=== PATIENT | male | born 1975 | race Caucasian/White ===

== ENCOUNTER 2019-08-11 15:33 | Outpatient (CLI) | payer BC, SELFPAY ==
--- NOTE | 2019-08-11 15:43 | XR_ITS ---
WS: [id number] PROCEDURE: XR chest 2V* [id number] CLINICAL INFORMATION: CHEST PAIN , FATIGUE COMPARISON: October 08, 2017 FINDINGS: Surgical clips left lung apex. Vascular stent over the mediastinum. Heart: Normal cardiac silhouette. Lungs: Lungs are clear. No consolidation or pleural fluid. Bones: Normal visualized bony structures. XR/XR chest 2V* [id number] IMPRESSION: No acute chest findings.
== END 2019-08-11 15:34 | disposition home or self-care (01) ==
LOC: RADWPI 15:40
PROVIDERS: Family Provider Nurse Practitioner Family; PCP Nurse Practitioner Family; Visit Provider Nurse Practitioner Family
DX: R07.9 Chest pain, unspecified (principal); R53.83 Other fatigue
CPT/HCPCS: 71046

== ENCOUNTER 2019-10-13 16:14 | Inpatient (IN) | payer BC, SELFPAY ==
[2019-10-13 16:19] VITALS: BP 152/87; PULSE 95; RESP 16; O2SAT 99; BMI 24.4
--- NOTE | 2019-10-13 16:19 | W.ED.PSYCH ---
Documented by User: MARCOS Guan 10/15/19 07:04 HPI - Psych General: Chief Complaint: Psychiatric Symptoms Stated Complaint: 96 HOUR HOLD Time Seen by Provider: 10/13/19 16:19 Source: patient Mode of arrival: other (POLICE) Limitations: no limitations History of Present Illness: HPI Narrative: Patient is a 44-year-old male who presents to ED today with police on a 96-hour hold. According to affidavits on patient's chart he has been very paranoid beginning last month. He thinks several people are stealing from his bank account and tracking his phone/texts/emails. He apparently has broken and disabled every phone and tablet in their home. He is constantly searching their house for other devices. He has made his girlfriend stripped naked so he could search her for hidden devices. He has not been eating or drinking because he thinks his girlfriend is poisoning him. He has bought cameras to place around his home to see if he can catch who is taking money and other belongings. He has made his girlfriend put her phone in the microwave so it cannot be traced. Patient denies etoh/drug use however family states they have seen meth on the counter . MD complaint: other (paranoia, delusions, psychosis) Onset (ago): week(s) Duration: intermittent History of same: No Relieving factors: none Exacerbating factors: none Associated symptoms: Deny auditory hallucinations, visual hallucinations, depression, homicidal ideation or suicidal ideation Review of Systems Const: Denies: fever(s) or chills Card: Denies: chest pain, palpitations, lightheadedness or syncope Resp: Denies: dyspnea GI: Denies: abdominal pain, nausea, vomiting or diarrhea Skin/Breast: Denies: rash Neuro: Denies: headache(s) Psych: Denies: anxiety, depression, visual hallucinations, auditory hallucinations, suicidal ideation or homicidal ideation [facility] ED PFSH: Social History Smoking and tobacco status: current every day smoker Physical Exam Const: COMMON NORMALS: no acute distress, patient oriented x3, alert and well nourished GENERAL APPEARANCE: cooperative and well kempt Resp: COMMON NORMALS: normal respiratory effort and clear to auscultation bilaterally AUSCULTATION: clear to auscultation bilaterally Cardio: COMMON NORMALS: regular rate and regular rhythm RATE: regular rate RHYTHM: regular rhythm Neuro: COMMON NORMALS: patient oriented x3 SENSORIUM/ORIENTATION: Yes alert Psych: COMMON NORMALS: mental status grossly normal, Normal thought process present, cooperative, normal affect, speech normal, activity/motor behavior normal, denies hallucinations, denies homicidal ideation and denies suicidal ideation APPEARANCE: Yes grossly normal and Yes well kempt ACTIVITY/MOTOR BEHAVIOR: Yes appropriate eye contact and No psychomotor agitation SPEECH: Yes normal speech MOOD & AFFECT: Yes euthymic mood THOUGHT PROCESS: Normal thought process present ATTENTION/CONCENTRATION: Yes attention grossly intact and Yes concentration grossly intact MEMORY/COGNITION: Yes memory grossly intact INSIGHT: Limited insight present (Psych) JUDGEMENT: Limited judgement present (Psych) OTHER: he does seem to think his girlfriend is poisoning him and stealing bank account information Skin: COMMON NORMALS: no rashes or lesions noted GENERAL SKIN EXAM: no rashes or lesions noted MDM - Psych Lab Data: Labs: Lab Results 10/13/19 10/13/19 Range/Units 16:25 16:25 WBC 8.0 (4.0-10.0) 10^3/ uL RBC 4.71 (4.1-5.3) 10^6/u L Hgb 15.3 (11.7-16.6) g/dL Hct 43.7 (42.0-52.0) % MCV 92.8 (80-94) fL MCH 32.5 (28.0-34.0) pg MCHC 35.0 (30.0-36.0) g/dL RDW 11.9 L (12.1-15.1) % Plt Count 267 (130-400) 10^3/c mm MPV 9.6 (7.4-10.4) fL Neut % (Auto) 53.1 % Lymph % (Auto) 37.4 % [place] % (Auto) 7.7 % Eos % (Auto) 1.1 % Baso % (Auto) 0.6 % Neut # (Auto) 4.3 (1.8-7.7) 10^3/u L Lymph # (Auto) 3.0 (0.8-4.8) 10^3/u L [place] # (Auto) 0.6 (0.2-0.9) 10^3/u L Eos # (Auto) 0.1 (0.0-0.8) 10^3/u L Baso # (Auto) 0.1 (0.0-0.1) 10^3/u L Nucleated RBC % (a uto) 0 % Nucleated RBCs # 0.0 /100WBC Sodium 139 (136-145) mmol/L Potassium 3.8 (3.5-5.1) mmol/L Chloride 99 (98-107) mmol/L Carbon Dioxide 27 (22-29) mmol/L Anion Gap 16.8 (5-19) BUN 8 (6-20) mg/dL Creatinine 0.9 (0.7-1.2) mg/dL GFR Calculation 91.7 (90-130) mL/min Glucose 105 (65-115) mg/dL Calculated Osmolal ity 284 L (285-295) mOsm/k g Calcium 9.2 (8.5-10.5) mg/dL Total Bilirubin 0.8 (0.15-1.2) mg/dL AST 30 (0-40) U/L ALT 68 H (0-41) U/L Alkaline Phosphata se 60 (40-130) IU/L Total Protein 7.5 (6.6-8.7) g/dL Albumin 4.8 (3.5-5.2) g/dL Globulin 2.7 (1.3-4.6) g/dL Salicylates < 0.3 L (3-10) mg/dL Acetaminophen < 5.0 L (10-30) ug/mL Ethyl Alcohol < 10 (0-10) mg/dL Discharge Plan Discharge Patient Disposition: Admitted As Inpatient Admit Provider: Jaciel Vail Clinical Impression: Acute psychosis Condition: Stable Referrals: Tayla Franklin FNP [Primary Care Provider] - Discharge Date/Time: 10/13/19 18:34 Sign Out Sign Out Data: Patient Sign Out occurred on 10/13/19 at 17:15. Patient's care was discussed, and care was transferred from to Pauline Rivas. Coding Level of Care Code ED Hydroelectric Plant Mechanical Engineer for g Fwd Exam Detailed Documented by User: Pauline Rivas 10/13/19 22:27 HPI - Psych General: Chief Complaint: Psychiatric Symptoms Stated Complaint: 96 HOUR HOLD Time Seen by Provider: 10/13/19 16:19 PFS ED PFSH: Social History Smoking and tobacco status: current every day smoker MDM - Psych Lab Data: Labs: Lab Results 10/13/19 10/13/19 Range/Units 16:25 16:25 WBC 8.0 (4.0-10.0) 10^3/ uL RBC 4.71 (4.1-5.3) 10^6/u L Hgb 15.3 (11.7-16.6) g/dL Hct 43.7 (42.0-52.0) % MCV 92.8 (80-94) fL MCH 32.5 (28.0-34.0) pg MCHC 35.0 (30.0-36.0) g/dL RDW 11.9 L (12.1-15.1) % Plt Count 267 (130-400) 10^3/c mm MPV 9.6 (7.4-10.4) fL Neut % (Auto) 53.1 % Lymph % (Auto) 37.4 % [place] % (Auto) 7.7 % Eos % (Auto) 1.1 % Baso % (Auto) 0.6 % Neut # (Auto) 4.3 (1.8-7.7) 10^3/u L Lymph # (Auto) 3.0 (0.8-4.8) 10^3/u L [place] # (Auto) 0.6 (0.2-0.9) 10^3/u L Eos # (Auto) 0.1 (0.0-0.8) 10^3/u L Baso # (Auto) 0.1 (0.0-0.1) 10^3/u L Nucleated RBC % (a uto) 0 % Nucleated RBCs # 0.0 /100WBC Sodium 139 (136-145) mmol/L Potassium 3.8 (3.5-5.1) mmol/L Chloride 99 (98-107) mmol/L Carbon Dioxide 27 (22-29) mmol/L Anion Gap 16.8 (5-19) BUN 8 (6-20) mg/dL Creatinine 0.9 (0.7-1.2) mg/dL GFR Calculation 91.7 (90-130) mL/min Glucose 105 (65-115) mg/dL Calculated Osmolal ity 284 L (285-295) mOsm/k g Calcium 9.2 (8.5-10.5) mg/dL Total Bilirubin 0.8 (0.15-1.2) mg/dL AST 30 (0-40) U/L ALT 68 H (0-41) U/L Alkaline Phosphata se 60 (40-130) IU/L Total Protein 7.5 (6.6-8.7) g/dL Albumin 4.8 (3.5-5.2) g/dL Globulin 2.7 (1.3-4.6) g/dL Salicylates < 0.3 L (3-10) mg/dL Acetaminophen < 5.0 L (10-30) ug/mL Ethyl Alcohol < 10 (0-10) mg/dL Discharge Plan Discharge Patient Disposition: Admitted As Inpatient Admit Provider: Jaciel Vail Clinical Impression: Acute psychosis Condition: Stable Referrals: Franklin,BRIGETTE Bourne [Primary Care Provider] - Discharge Date/Time: 10/13/19 18:34 Sign Out Sign Out Data: Patient Sign Out occurred on 10/13/19 at 17:15. Patient's care was discussed, and care was transferred from to [facility]. Coding Level of Care Code ED Hydroelectric Plant Mechanical Engineer for g Fwd Exam Detailed
[2019-10-13 16:48] LABS: Basophils # 0.1 10^3/uL (0.0-0.1); Basophils % 0.6 %; Eosinophils # 0.1 10^3/uL (0.0-0.8); Eosinophils % 1.1 %; Hematocrit 43.7 % (42.0-52.0); Hemoglobin 15.3 g/dL (11.7-16.6); Lymphocytes % 37.4 %; Mean Corpuscular Hemoglobin 32.5 pg (28.0-34.0); Mean Corpuscular Volume 92.8 fL (80-94); Mean Platelet Volume 9.6 fL (7.4-10.4); Monocytes # 0.6 10^3/uL (0.2-0.9); Monocytes % 7.7 %; Neutrophils # 4.3 10^3/uL (1.8-7.7); Neutrophils % 53.1 %; Nucleated Red Blood Cells % 0 %; Platelet Count 267 10^3/cmm (130-400); Red Blood Count 4.71 10^6/uL (4.1-5.3); Red Cell Distribution Width 11.9 % (12.1-15.1)
[2019-10-13 17:28] LABS: Alanine Aminotransferase 68 U/L (0-41); Albumin Level 4.8 g/dL (3.5-5.2); Alkaline Phosphatase 60 IU/L (40-130); Anion Gap 16.8 (5-19); Aspartate Amino Transferase 30 U/L (0-40); Blood Urea Nitrogen 8 mg/dL (6-20); Calcium 9.2 mg/dL (8.5-10.5); Carbon Dioxide 27 mmol/L (22-29); Chloride 99 mmol/L (98-107); Globulin 2.7 g/dL (1.3-4.6); Glomerular Filtration Rate 91.7 mL/min (90-130); Glucose 105 mg/dL (65-115); Osmolality Calculated 284 mOsm/kg (285-295); Potassium 3.8 mmol/L (3.5-5.1); Sodium 139 mmol/L (136-145); Total Bilirubin 0.8 mg/dL (0.15-1.2); Total Protein 7.5 g/dL (6.6-8.7)
[2019-10-13 17:36] LABS: Acetaminophen < 5.0 ug/mL (10-30); Alcohol Level < 10 mg/dL (0-10); Salicylate < 0.3 mg/dL (3-10)
[2019-10-13 18:33] VITALS: BP 138/74; PULSE 72; RESP 18; O2SAT 98
[2019-10-13 18:36] VITALS: BP 129/89; PULSE 83; RESP 20; TEMP 36.5; O2SAT 99
[2019-10-13] MEDS: trazodone 50 mg Tablet PO (20:27)
--- NOTE | 2019-10-13 20:53 | PC.NURSE ---
pt offered trazodone for sleep, pt accepted.
[2019-10-13 21:44] LABS: Amphetamines Screen Urine Positive (Negative); Barbiturates Screen Urine Negative (Negative); Benzodiazepines Screen Urine Negative (Negative); Cocaine Screen Urine Negative (Negative); Opiate Screen Urine Negative (Negative); PCP Screen Urine Negative (Negative); THC Screen Urine Negative (Negative)
[2019-10-13 21:58] VITALS: BP 106/73; PULSE 122; RESP 16; TEMP 36.5; O2SAT 99
[2019-10-14 06:00] VITALS: BP 108/71; PULSE 74; RESP 18; TEMP 36.9; O2SAT 99
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
[2019-10-14] MEDS: nicotine 21 mg Patch 1 PATCH TRANSDERMA (09:58)
[2019-10-14 14:00] VITALS: BP 93/61; PULSE 88; RESP 16; TEMP 36.5; O2SAT 98
[2019-10-14] MEDS: quetiapine 100 mg Tablet PO (20:56)
[2019-10-14] MEDS: atorvastatin 40 mg Tablet 20 MG PO (21:41)
[2019-10-14] MEDS: clopidogrel 75 mg Tablet PO (21:41)
[2019-10-14 21:49] VITALS: BP 111/79; PULSE 87; RESP 17; TEMP 36.4; O2SAT 100
[2019-10-15 05:53] VITALS: BP 110/73; PULSE 64; RESP 17; TEMP 36.9; O2SAT 97
[2019-10-15] MEDS: clopidogrel 75 mg Tablet PO (08:53)
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
[2019-10-15] MEDS: acetaminophen 325 mg Tablet 650 MG PO (13:42)
[2019-10-15 14:00] VITALS: BP 105/69; PULSE 94; RESP 20; TEMP 36.9; O2SAT 98
[2019-10-15] MEDS: atorvastatin 40 mg Tablet 20 MG PO (20:49)
[2019-10-15] MEDS: trazodone 50 mg Tablet PO (21:14)
[2019-10-15] MEDS: ibuprofen 600 mg Tablet PO (21:14)
[2019-10-15 22:00] VITALS: BP 98/64; PULSE 72; RESP 17; TEMP 36.6; O2SAT 98
--- NOTE | 2019-10-15 22:38 | PC.NURSE ---
TRAZODONE PT REQUESTING SLEEP AID. ADMINISTERED TRAZODONE 50 MG PO. WILL MONITOR FOR MEDICATION EFFECTIVENESS.
[2019-10-16 06:00] VITALS: BP 118/72; PULSE 66; RESP 18; TEMP 36.7; O2SAT 97
[2019-10-16] MEDS: clopidogrel 75 mg Tablet PO (07:52)
[2019-10-16 10:38] VITALS: BP 118/72; PULSE 66; RESP 18; TEMP 36.7; O2SAT 97
[2019-10-16 11:12] VITALS: BP 118/72; PULSE 66; RESP 18; TEMP 36.7; O2SAT 97
--- NOTE | 2019-10-16 11:48 | P.DS_ITS ---
Diagnoses at Discharge Discharge Diagnosis (1) Amphetamine-induced psychotic disorder: Status: Resolved Reason for Visit Reason for Visit: Reason For Visit: 96 HOUR HOLD Brief History: Chief complaint: I saw my again on my AOL account. I have not been able to get on that account since 2016. How do you think she got on that account? History of present illness: Fabian Gagnon is a 44-year-old man with no prior psychiatric history who presents with reports from [facility] and the ER physician at [facility] filed by his and her daughter. The affidavits detail some very bizarre and paranoid behavior. However it is noted that all of the information from the 2 reports below and the affidavits are verbal hearsay reports from the patient's and daughter. Laboratory Tests 10/13/19 10/13/19 16:25 19:02 Urine Opiates Screen Negative Ur Barbiturates Screen Negative Ur Phencyclidine Scrn Negative Ur Amphetamines Screen Positive H U Benzodiazepines Scrn Negative Urine Cocaine Screen Negative U Marijuana (THC) Screen Negative Ethyl Alcohol < 10 The patient states that his is trying to get rid of him and now that he is in the hospital, he is convinced that she is stealing all of his belongings from the home. He denies many of the allegations made in the affidavits. He does however report some bizarre events all surrounding his cell phone and computer accounts that he attributes to the manipulations of his . The information he provides is internally consistent but not verifiable. He states that he does not use methamphetamine and his urine drug screen was positive for meth. He says that he thinks somebody may have slipped him some methamphetamine without his knowing. He does detail some bizarre recent events where he was becoming confused. However he denies paranoia. He denies the presence of auditory or visual hallucinations. He denies the presence of suicidal or homicidal ideation. He has never been in counseling, seeing a psychiatrist, taking medications for mental health problem, or been admitted to a psychiatric hospital. 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 He is difficult to interview as he continues to perseverate on his fear that his and her daughter are stealing all of his belongings. He is fearful that his brother may also be involved as his used to be to his brother. Report from [facility]: Presenting Problem:: Fabian is described as acutely psychotic. He had a procedure on the [address] the 2 newest of 6 stints. Since then he has not been himself , he has reportedly started using methamphetamine, hasn't slept, eaten, or drank for several days. Additionally he is not taking the medications he is prescribed for his heart condition. He also have destroyed all computer devices and phone, has searched people for devices, and has spent large amounts of funds on surveillance and protective devices. His behavior is violent (thus far toward inanimate objects only), unpredictable, and increasingly bizarre. Police have been called twice due to his erratic behavior and the fear of being harmed his girlfriend and her daughter have felt. Of note is that Jessenia 17 month old daughter was at the home and when his behavior escalated they took her to her fathers family to remove her ring. Mental health history: Has never been treated for mental health problems. No history of counseling, medications for psychiatric diagnoses, psychiatric evaluation, or mental health hospitalization Hospital Course Discharge Summary From the time of admission, the patient is stated that that the allegations made against him by his girlfriend and her daughter and the affidavit were patently false. He claimed that the amphetamines that were in his drug screen were given to him by someone else. What was apparent was that there were contradicting st ories provided by the patient and his girlfriend in the affidavits. Over the course of a 2-day investigation, the weight of evidence pointed to the story provided by the patient as being more accurate. His hand cigar making supervisor at the [employer] at which she works reported that he had been performing his job without difficulty. There were no employment issues. There was no record of any prior mental health interventions that indicated a chronic mental health problem. Outside of the affidavit, no evidence could be found to support the allegations in the affidavit. Over the course of his hospitalization, he remained coherent logical and goal-directed without flight of ideas or loose associations. He did display a suspicious nature and continued to insist that his girlfriend had found a way to track his phone and get into an old AOL account. Given the nature of the technology, neither of those allegations are necessarily signs of irrational paranoia. At no time was there an indication of imminent risk to self or others. He stated that his plans on discharge were to go live with his aunt. He was angry at his girlfriend of forgetting a restraining order against him. However he specifically stated that he had no intention of retaliation. At no time was there an indication of first rank symptoms of psychosis during his hospitalization. There is no attention to internal stimuli. He was not seen to be responding to unseen voices or forces. There was a report that he did seem much more irritable after having the surgery for the stent 2 months ago. It was recommended that he have a CT scan of the brain to make sure that he perhaps may have had a CVA subsequent to the surgery. However he decided that it was more important for him to leave the hospital and he left AGAINST MEDICAL ADVICE. Involuntary Hold Information 96 Hour Hold: 96 Hour Involuntary Admission: Yes 96 Hour Hold Ending Date: 10/17/19 96 Hour Hold Ending Time: 18:36 Mental Status Exam MSE Comments: Discharge Mental Status Exam: Patient is alert interpersonally engaged male appearing approximately his stated age. Information provided is internally consistent and consistent with that in the chart other than the information provided in his affidavit. Appearance: hygiene is good; no gross neurological deficits., gait is unremarkable; AIMS=0 Speech: Speech is of normal rate and rhythm and easily understood. Thought processes: Thought processes are abstract though occasionally idiosyncratic. Judgment is adequate for safety. There is no indication of imminent danger to self or others. Psychotic processes: There is no indication of guarding or paranoia. There is no attention to the internal stimuli. Auditory and visual hallucinations are denied. Judgment: Insight is fair. Problem solving skills are good. Orientation: The patient is oriented to person, place time and situation. Memory: no deficits noted in immediate, intermediate, or remote spheres. Attention: The patient is alert and interpersonally engaged. Language: Verbalizations are coherent. Fund of knowledge: Fund of knowledge is adequate. Affect/Mood: Affect is irritable with a euthymic mood. denied suicidal ideation Affective range is appropriate. Psychosis: perception unimpaired except through cognitive distortion; reality testing intact. Discharge Data Data Completed and Pending: Pending at discharge Category Date Time Status CT head wo/w con [id number] Routine Cat Scan 10/16/19 09:59 Ordered Vitals: Last Vital Signs Temp 98.1 F 10/16/19 11:12 Pulse 66 10/16/19 11:12 Resp 18 10/16/19 11:12 BP 118/72 10/16/19 11:12 Pulse Ox 97 10/16/19 11:12 Discharge Plan Discharge Patient Disposition: Left Against Medical Advice Condition: Stable Prescriptions: Continued atorvastatin 20 mg tablet 20 mg PO QPM RF: 0 cetirizine 10 mg Tablet 10 mg PO DAILY PRN (Reason: Allergy Symptoms) RF: 0 clopidogrel 75 mg tablet 75 mg PO DAILY RF: 0 Chantix Starting Month Box 0.5 mg (11)- 1 mg (42) tablets,dose pack See Rx Instructions .ROUTE .COMPLEX RF: 0 atorvastatin 20 mg tablet RF: 0 Discharge Orders: Discharge Order (Routine); Ordered 10/16/19 Ordered By: Jaciel Vail Referrals: [facility] [Outside] - 4-7 days (walk-in hours: 7:30 a.m.-2:30 .m. 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
== END 2019-10-16 12:05 | disposition left against medical advice (07) | DRG 894 ==
LOC: ER 17:15 → NP 18:19
PROVIDERS: Physician Assistant; Admitting Provider Psychiatry & Neurology Psychiatry; PCP Nurse Practitioner Family; Visit Provider Psychiatry & Neurology Psychiatry
DX: F15.959 Other stimulant use, unspecified with stimulant-induced psychotic disorder, unspecified (principal); I25.10 Atherosclerotic heart disease of native coronary artery without angina pectoris; Z95.5 Presence of coronary angioplasty implant and graft; F15.90 Other stimulant use, unspecified, uncomplicated; Z91.128 Patient's intentional underdosing of medication regimen for other reason; F17.210 Nicotine dependence, cigarettes, uncomplicated; Z53.29 Procedure and treatment not carried out because of patient's decision for other reasons; Z79.02 Long term (current) use of antithrombotics/antiplatelets
CPT/HCPCS: 12345; 80053; 80306; 80307; 85025; 99284

== ENCOUNTER → 2020-01-16 11:37 | Outpatient (BNVA) | payer BC, SELFPAY | PROVIDERS: PCP Nurse Practitioner Family; Visit Provider Nurse Practitioner Family | DX: Z11.59 Encounter for screening for other viral diseases (principal) | CPT/HCPCS: 87635 ==

== ENCOUNTER 2020-01-26 14:46 | Emergency (ER) | payer BC, SELFPAY ==
[2020-01-26 14:51] VITALS: BP 114/90; PULSE 95; RESP 18; TEMP 37; O2SAT 95; BMI 26.3
--- NOTE | 2020-01-26 14:57 | XRR_ITS ---
PROCEDURE INFORMATION: Exam: XR Chest, 1 View Exam date and time: 01/26/2020 3:32 PM Age: 44 years old Clinical indication: Chest pain; Type not specified TECHNIQUE: Imaging protocol: XR of the chest Views: 1 view. COMPARISON: CR XR chest 2V* [id number] 08/11/2019 4:00 PM FINDINGS: Lungs: Unremarkable. No consolidation. Pleural space: Unremarkable. No pleural effusion. No pneumothorax. Heart/Mediastinum: Unremarkable. No cardiomegaly. Vasculature: Vascular stent in the medial right upper chest. Bones/joints: No acute findings. Other findings: Postoperative change in the left lower neck. XR/XR chest 1V portable [id number] IMPRESSION: No acute findings.
--- NOTE | 2020-01-26 14:57 | ECG_ITS ---
[facility] Test Date: 2020-01-26 Pat Name: Fabian Gagnon Department: Room: Gender: Male Service Unit Operator: : 1975 Requested By: Susan Prieto Order Number: [id number] Srinivasan MD: Leyda Lockwood M.D. Measurements Intervals [place] Rate: 98 P: 83 NM: 108 QRS: 84 QRSD: 86 T: 66 QT: 345 QTc: 442 Interpretive Statements SINUS RHYTHM WITH SHORT NM INTERVAL POSSIBLE LEFT ATRIAL ENLARGEMENT [-0.1mV P WAVE IN V1/V2] Compared to ECG 06/01/2017 15:18:32 Short NM interval now present Electronically Signed On 01-27-2020 17:20:57 CDT by Leyda Lockwood M.D. [email or web address] centerTianyuan Bio-Pharmaceuticalohiohealth [facility].Magnetic/store/NU/[id number] f
[2020-01-26 14:59] VITALS: BP 118/89; PULSE 95; RESP 20; O2SAT 97
--- NOTE | 2020-01-26 15:14 | W.ED.CHESTPA ---
HPI - Chest Pain General: Chief Complaint: Chest Pain Stated Complaint: cp Time Seen by Provider: 01/26/20 14:56 Source: patient Mode of arrival: ambulatory Limitations: no limitations History of Present Illness: HPI narrative: Patient is a 44-year-old male who presents to ED today with a complaint of left-sided chest pain. Patient does not seem to know if the pain started yesterday or the day before. He states pain seems to be episodic. He describes the sensation as a vibrating . He has not found any worsening or alleviating factors to his discomfort. He states pain seems to radiate into the right side of his chest. Patient apparently was seen at [place] ED yesterday and discharged home after his evaluation. Patient does admit to recently smoking methamphetamines. He denies any previous cardiac problems. He does have a history of what sounds to be subclavian steal syndrome and had surgery for this several years ago in [place]. He is complaining of shortness of breath. He has not been running fevers. MD complaint: chest pain Onset (ago): day(s) Timing of current episode: episodic Prior episodes: Yes Onset: during rest Pain location: left chest and right chest Relieving factors: nothing Exacerbating factors: nothing Associated symptoms: Reports dyspnea; Deny abdominal pain, fever(s), nausea, palpitations, syncope or vomiting Review of Systems Const: Denies: fever(s), chills, body aches, fatigue or malaise Eyes: Denies: change in vision, blurry vision, photophobia, floaters or seeing flashes Card: Reports: chest pain; Denies: palpitations, irregular heart rhythm, edema, swelling of feet/ankles, lightheadedness, syncope, pre-syncope, dyspnea on exertion, orthopnea, leg pain with exertion or acrocyanosis Resp: Reports: dyspnea; Denies: productive cough, non-productive cough, pain on inspiration, change in phlegm color, hemoptysis or chest congestion GI: Denies: abdominal pain, nausea, vomiting, heartburn or diarrhea : Denies: difficulty urinating or dysuria Musc: Denies: neck pain, back pain, extremity pain, extremity swelling, joint pain or joint swelling Skin/Breast: Denies: rash Neuro: Denies: headache(s), numbness in extremities, weakness in extremities or sensory changes PFSH ED PFSH: Social History Smoking and tobacco status: current every day smoker Physical Exam Const: COMMON NORMALS: average body habitus, patient oriented x3, alert and well nourished GENERAL APPEARANCE: cooperative and disheveled ORIENTATION/CONSCIOUSNESS: Yes awake, Yes oriented to person, Yes oriented to place and Yes oriented to time OTHER: appears under the influence of amphetamines HENMT: COMMON NORMALS: normocephalic and atraumatic HEAD & SCALP: normocephalic and atraumatic Eye: COMMON NORMALS: Equal, round and reactive pupils present, EOMs intact bilaterally, conjunctivae normal and no scleral icterus GENERAL EYE: appearance normal, both eyes and all related structures CONJUNCTIVA: Yes conjunctivae normal PUPIL: Yes Equal, round and reactive pupils present Neck/C-Spine: COMMON NORMALS: full ROM, no lymphadenopathy and no meningeal signs Chest: COMMONS NORMALS: normal inspection of the chest OTHER: TTP throughout anterior chest Resp: COMMON NORMALS: normal respiratory effort and clear to auscultation bilaterally AUSCULTATION: clear to auscultation bilaterally Cardio: COMMON NORMALS: regular rate and regular rhythm RATE: regular rate RHYTHM: regular rhythm GI: COMMON NORMALS: Normal to inspection, nondistended, normoactive bowel sounds present, Soft to palpation, non-tender, No hepatosplenomegaly present and no masses PALPATION: Yes Soft to palpation and Yes No hepatosplenomegaly present Back/Pelvis: COMMON NORMALS: thoracic and lumbar spine normal to inspection, no thoracic nor lumbar tenderness and thoraco-lumbar ROM normal Extremity: COMMON NORMALS: normal to inspection Neuro: KEYANNA COMA SCALE: document GCS findings [place] coma scale eye opening: Spontaneous [place] coma scale verbal response: Orientated Keyanna coma scale motor response: Obey commands [place] coma scale total score: 15 COMMON NORMALS: patient oriented x3 SENSORIUM/ORIENTATION: Yes alert, Yes oriented to person, Yes oriented to place and Yes oriented to time MENINGEAL SIGNS: Yes no meningeal signs Skin: COMMON NORMALS: no rashes or lesions noted GENERAL SKIN EXAM: no rashes or lesions noted Course Reevaluation(s): Reevaluation #1: patient looking slightly improved; urine sitting in room appears extremely dark; when questioned he tells me he has not drank anything in several days; will give patient another liter of fluids and order UA on his urine Reevaluation #2: patient telling me his chest pain has fully resolved Vital Signs: Vital signs: Vital Signs Temperature 98.6 F 01/26/20 14:51 Pulse Rate 92 01/26/20 17:19 Respiratory Rate 20 H 01/26/20 17:19 Blood Pressure 130/87 01/26/20 17:19 Pulse Oximetry 100 01/26/20 17:19 MDM - Chest Pain MDM Narrative: Medical decision making narrative: Patient stating his chest pain has fully alleviated at this time. Patient has a HEART score of 2. CXR normal. Initial troponin normal. EKG showing short CT but otherwise normal. There was no evidence for WPW or other accessory pathway. Symptoms could be related to him recently smoking methamphetamines. Recommend he follow up with his PCP this week for re-evaluation. Return to ED precautions given. Lab Data: Labs: Lab Results 01/26/20 01/26/20 01/26/20 Range/Units 15:18 15:18 15:18 WBC 8.6 (4.0-10.0) 10^3/ uL RBC 4.21 (4.1-5.3) 10^6/u L Hgb 13.8 (11.7-16.6) g/dL Hct 39.3 L (42.0-52.0) % MCV 93.3 (80-94) fL MCH 32.8 (28.0-34.0) pg MCHC 35.1 (30.0-36.0) g/dL RDW 12.3 (12.1-15.1) % Plt Count 240 (130-400) 10^3/c mm MPV 9.4 (7.4-10.4) fL Neut % (Auto) 52.8 % Lymph % (Auto) 40.0 % [place] % (Auto) 5.8 % Eos % (Auto) 0.7 % Baso % (Auto) 0.5 % Neut # (Auto) 4.55 (1.8-7.7) 10^3/u L Lymph # (Auto) 3.4 (0.8-4.8) 10^3/u L [place] # (Auto) 0.5 (0.2-0.9) 10^3/u L Eos # (Auto) 0.1 (0.0-0.8) 10^3/u L Baso # (Auto) 0.0 (0.0-0.1) 10^3/u L Nucleated RBC % (a uto) 0 % Nucleated RBCs # 0.0 /100WBC Sodium 141 (136-145) mmol/L Potassium 3.5 (3.5-5.1) mmol/L Chloride 107 (98-107) mmol/L Carbon Dioxide 23 (22-29) mmol/L Anion Gap 14.5 (5-19) BUN 11 (6-20) mg/dL Creatinine 0.9 (0.7-1.2) mg/dL GFR Calculation 91.7 (90-130) mL/min Glucose 94 (65-115) mg/dL Calculated Osmolal ity 288 (285-295) mOsm/k g Calcium 9.0 (8.5-10.5) mg/dL Total Bilirubin 1.8 H (0.15-1.2) mg/dL AST 14 (0-40) U/L ALT 11 (0-41) U/L Alkaline Phosphata se 51 (40-130) IU/L Creatine Kinase 115 (39-308) U/L Troponin T Baselin e 6 (0-15) ng/L Total Protein 6.8 (6.6-8.7) g/dL Albumin 4.4 (3.5-5.2) g/dL Globulin 2.4 (1.3-4.6) g/dL Urine Color (Yellow) Urine Appearance (CLEAR) Urine pH (5-7) Ur Specific Gravit y (1.005-1.030) Urine Protein (Negative) Urine Glucose (UA) (Normal) Urine Ketones (Negative) Urine Blood (Negative) Urine Nitrate (Negative) Urine Bilirubin (NEGATIVE) Urine Urobilinogen (Negative) mg/dL Ur Leukocyte Tara ase (Negative) Urine RBC (0-2) /hpf Urine WBC (0-5) /hpf Ur Squamous Epith Cells (0-5) Amorphous Sediment Urine Bacteria (NONE) Urine Mucus Urine Opiates Scre en (Negative) ng/mL Ur Barbiturates Sc reen (Negative) ng/mL Ur Phencyclidine S crn (Negative) ng/mL Ur Amphetamines Sc reen (Negative) ng/mL U Benzodiazepines Scrn (Negative) ng/mL Urine Cocaine Scre en (Negative) ng/mL U Marijuana (THC) Screen (Negative) ng/mL 08/24/20 08/24/20 Range/Units 15:32 15:32 WBC (4.0-10.0) 10^3/ uL RBC (4.1-5.3) 10^6/u L Hgb (11.7-16.6) g/dL Hct (42.0-52.0) % MCV (80-94) fL MCH (28.0-34.0) pg MCHC (30.0-36.0) g/dL RDW (12.1-15.1) % Plt Count (130-400) 10^3/c mm MPV (7.4-10.4) fL Neut % (Auto) % Lymph % (Auto) % [place] % (Auto) % Eos % (Auto) % Baso % (Auto) % Neut # (Auto) (1.8-7.7) 10^3/u L Lymph # (Auto) (0.8-4.8) 10^3/u L [place] # (Auto) (0.2-0.9) 10^3/u L Eos # (Auto) (0.0-0.8) 10^3/u L Baso # (Auto) (0.0-0.1) 10^3/u L Nucleated RBC % (a uto) % Nucleated RBCs # /100WBC Sodium (136-145) mmol/L Potassium (3.5-5.1) mmol/L Chloride (98-107) mmol/L Carbon Dioxide (22-29) mmol/L Anion Gap (5-19) BUN (6-20) mg/dL Creatinine (0.7-1.2) mg/dL GFR Calculation (90-130) mL/min Glucose (65-115) mg/dL Calculated Osmolal ity (285-295) mOsm/k g Calcium (8.5-10.5) mg/dL Total Bilirubin (0.15-1.2) mg/dL AST (0-40) U/L ALT (0-41) U/L Alkaline Phosphata se (40-130) IU/L Creatine Kinase (39-308) U/L Troponin T Baselin e (0-15) ng/L Total Protein (6.6-8.7) g/dL Albumin (3.5-5.2) g/dL Globulin (1.3-4.6) g/dL Urine Color Brown (Yellow) Urine Appearance Cloudy (CLEAR) Urine pH 5 (5-7) Ur Specific Gravit y 1.030 (1.005-1.030) Urine Protein Neg (Negative) Urine Glucose (UA) Norm (Normal) Urine Ketones 1+ H (Negative) Urine Blood 3+ H (Negative) Urine Nitrate Negative (Negative) Urine Bilirubin 1+ H (NEGATIVE) Urine Urobilinogen 4 H (Negative) mg/dL Ur Leukocyte Tara ase Negative (Negative) Urine RBC 10-15 H (0-2) /hpf Urine WBC None (0-5) /hpf Ur Squamous Epith Cells 0-4 H (0-5) Amorphous Sediment Not Reportable Urine Bacteria 1+ H (NONE) Urine Mucus 4+ Urine Opiates Scre en Negative (Negative) ng/mL Ur Barbiturates Sc reen Negative (Negative) ng/mL Ur Phencyclidine S crn Negative (Negative) ng/mL Ur Amphetamines Sc reen Positive H (Negative) ng/mL U Benzodiazepines Scrn Negative (Negative) ng/mL Urine Cocaine Scre en Negative (Negative) ng/mL U Marijuana (THC) Screen Negative (Negative) ng/mL Imaging Data^: CXR: Radiologist's impression: [place] [address] XRay Report Signed Patient: Fabian Gagnon Unit #: [id number] : 1975 Age/Sex: 44 / M ADM Date: 01/26/20 Loc: ER Room/Bed: Attending Dr: Ordering Provider/Ordering MD: Susan Prieto Date of Service: 01/26/20 Procedure(s): XR chest 1V portable [id number] Accession Number(s): [id number] Report Number: [id number] PROCEDURE INFORMATION: Exam: XR Chest, 1 View Exam date and time: 01/26/2020 3:32 PM Age: 44 years old Clinical indication: Chest pain; Type not specified TECHNIQUE: Imaging protocol: XR of the chest Views: 1 view. COMPARISON: CR XR chest 2V* [id number] 08/11/2019 4:00 PM FINDINGS: Lungs: Unremarkable. No consolidation. Pleural space: Unremarkable. No pleural effusion. No pneumothorax. Heart/Mediastinum: Unremarkable. No cardiomegaly. Vasculature: Vascular stent in the medial right upper chest. Bones/joints: No acute findings. Other findings: Postoperative change in the left lower neck. XR/XR chest 1V portable [id number] IMPRESSION: No acute findings. Dictated By: Escobar Lara MD Signed By: Escobar Lara MD Signed Date/Time: 01/26/20 1548 DD/ EKG Data^: EKG 1: EKG interpretation date: 01/26/20 EKG interpretation time: 14:52 Interpretation: Sinus rhythm with short CT interval Rate [address] elevation or depression changes noted There is no widening of QRS complex and no delta waves present Also reviewed by Dr. Gomez EKG 2: EKG interpretation date: 01/26/20 EKG interpretation time: 16:44 Interpretation: Sinus rhythm with short CT interval Rate [address] elevation or depression changes noted No acute changes noted from EKG performed earlier on same visit Discharge Plan Discharge Patient Disposition: Home Clinical Impression: Methamphetamine abuse Chest pain Qualifiers: Chest pain type: unspecified Qualified Code(s): R07.9 - Chest pain, unspecified Hematuria Qualifiers: Hematuria type: unspecified type Qualified Code(s): R31.9 - Hematuria, unspecified Condition: Stable Prescriptions: No Action clopidogrel 75 mg tablet 75 mg PO DAILY RF: 0 Aspir-81 81 mg Tablet,Delayed Release (Dr/Ec) 81 mg PO DAILY RF: 0 Discharge Orders: Discharge Order (Routine); Ordered 01/26/20 Ordered By: Susan Prieto Referrals: Tayla Franklin FNP [Primary Care Provider] - Patient Instructions: Methamphetamine Abuse, Chest Pain (ED), Methamphetamine Abuse (ED) Activity Restrictions/Additional Instructions: As discussed please follow-up with your primary care provider this week for reevaluation. You may return to the emergency department for any worsening chest pain, shortness of breath, difficulty breathing, passing out episodes, fevers greater than 100.4, or any other concerns you may have. Stop doing methamphetamine. Discharge Date/Time: 01/26/20 17:19 Coding Level of Care Code ED Cheese Specialist for Chg Fwd Exam Comprehensive
[2020-01-26 15:25] LABS: Basophils % 0.5 %; Eosinophils # 0.1 10^3/uL (0.0-0.8); Eosinophils % 0.7 %; Hematocrit 39.3 % (42.0-52.0); Hemoglobin 13.8 g/dL (11.7-16.6); Lymphocytes # 3.4 10^3/uL (0.8-4.8); Mean Corpuscular HGB Conc 35.1 g/dL (30.0-36.0); Mean Corpuscular Hemoglobin 32.8 pg (28.0-34.0); Mean Corpuscular Volume 93.3 fL (80-94); Mean Platelet Volume 9.4 fL (7.4-10.4); Monocytes # 0.5 10^3/uL (0.2-0.9); Monocytes % 5.8 %; Neutrophils # 4.55 10^3/uL (1.8-7.7); Neutrophils % 52.8 %; Nucleated Red Blood Cells % 0 %; Platelet Count 240 10^3/cmm (130-400); Red Blood Count 4.21 10^6/uL (4.1-5.3); Red Cell Distribution Width 12.3 % (12.1-15.1); White Blood Count 8.6 10^3/uL (4.0-10.0)
[2020-01-26 15:44] VITALS: O2SAT 95
[2020-01-26] MEDS: sodium chloride 0.9% 1,000 ML 999 ML IV ×2 (15:48→16:39)
[2020-01-26 15:50] LABS: Alanine Aminotransferase 11 U/L (0-41); Albumin Level 4.4 g/dL (3.5-5.2); Alkaline Phosphatase 51 IU/L (40-130); Anion Gap 14.5 (5-19); Aspartate Amino Transferase 14 U/L (0-40); Blood Urea Nitrogen 11 mg/dL (6-20); Carbon Dioxide 23 mmol/L (22-29); Chloride 107 mmol/L (98-107); Creatine Phosphokinase 115 U/L (39-308); Globulin 2.4 g/dL (1.3-4.6); Glomerular Filtration Rate 91.7 mL/min (90-130); Glucose 94 mg/dL (65-115); Osmolality Calculated 288 mOsm/kg (285-295); Potassium 3.5 mmol/L (3.5-5.1); Sodium 141 mmol/L (136-145); Total Bilirubin 1.8 mg/dL (0.15-1.2); Total Protein 6.8 g/dL (6.6-8.7)
[2020-01-26 15:51] LABS: Troponin(5th) Baseline 6 ng/L (0-15)
[2020-01-26 15:56] LABS: Amphetamines Screen Urine Positive (Negative); Barbiturates Screen Urine Negative (Negative); Benzodiazepines Screen Urine Negative (Negative); Cocaine Screen Urine Negative (Negative); Opiate Screen Urine Negative (Negative); PCP Screen Urine Negative (Negative); THC Screen Urine Negative (Negative)
[2020-01-26] MEDS: LORazepam 2 mg/mL INJ 1 mL 1 MG IVP (16:18)
--- NOTE | 2020-01-26 16:57 | ECG_ITS ---
[facility] Test Date: 2020-01-26 Pat Name: Fabian Gagnon Department: Room: Gender: Male Editing Internship: : 1975 Requested By: Susan Prieto Order Number: [id number] Srinivasan MD: Leyda Lockwood M.D. Measurements Intervals [place] Rate: 90 P: 83 RI: 119 QRS: 79 QRSD: 84 T: 62 QT: 381 QTc: 467 Interpretive Statements SINUS RHYTHM WITH SHORT RI INTERVAL Compared to ECG 01/26/2020 14:52:14 No significant changes Electronically Signed On 01-27-2020 17:29:02 CDT by Leyda Lockwood M.D. [email or web address] smith countyHelpingDocgeorgetown behavioral [email or web address] PCR Diagnostics/store/OM/[id number]
[2020-01-26 17:06] LABS: Add Urine Microscopic? YES; Bilirubin Urine 1+ (NEGATIVE); Blood Urine 3+ (Negative); Glucose Urine UA Norm (Normal); Ketones Urine 1+ (Negative); Leukocyte Esterase Urine Negative (Negative); Nitrate Urine Negative (Negative); Protein Urine Neg (Negative); Urine Appearance Cloudy (CLEAR); Urine Color Brown (Yellow); Urobilinogen Urine 4 mg/dL (Negative); pH Urine 5 (5-7)
[2020-01-26 17:16] LABS: Squamous Epithelial Cell Urine 0-4 (0-5)
[2020-01-26 17:17] LABS: Add Urine Culture? Yes; Bacteria Urine 1+; Mucus Urine 4+
[2020-01-26 17:19] VITALS: BP 130/87; PULSE 92; RESP 20; O2SAT 100
== END 2020-01-26 17:19 | disposition home or self-care (01) ==
PROVIDERS: Emergency Provider Physician Assistant; PCP Nurse Practitioner Family
DX: R07.9 Chest pain, unspecified (principal); R31.9 Hematuria, unspecified; F15.10 Other stimulant abuse, uncomplicated; Z79.02 Long term (current) use of antithrombotics/antiplatelets; Z79.82 Long term (current) use of aspirin; F17.210 Nicotine dependence, cigarettes, uncomplicated
CPT/HCPCS: 12345; 36415; 71045; 80053; 80306; 81001; 82550; 84484; 85025; 87086; 93005; 96361; 96374; 96375; 99283; 99284; J2060; J7030

== ENCOUNTER 2021-07-11 08:00 | Emergency (ER) | payer BC, MEDICAID, SELFPAY ==
[2021-07-11 08:07] VITALS: BP 101/73; PULSE 98; RESP 16; TEMP 36.8; O2SAT 97; BMI 25.1
--- NOTE | 2021-07-11 08:21 | W.ED.DENTAL ---
HPI - Dental/Oral General: Chief complaint: Dental/Oral Stated complaint: Dental pain Time Seen by Provider: 07/11/21 08:04 History of Present Illness: Patient is a 46-year-old male who comes to the ED with dental pain. Pain started a couple days ago. He has some swelling and tenderness to the right lower mandible. Dental pain is located at tooth #31. Pain is mild and he takes aspirin at home for pain. Denies any fever, chills, throat or tongue swelling, nausea/vomiting. Associated symptoms: Denies fever(s), odynophagia or tongue swelling Review of Systems Const: Denies: fever(s), chills or fatigue Eyes: Denies: change in vision or eye discomfort ENMT: Reports: dental pain; Denies: throat pain, odynophagia, nasal discharge or nasal congestion Card: Denies: chest pain, palpitations, edema, swelling of feet/ankles, dyspnea on exertion or orthopnea Resp: Denies: dyspnea, productive cough or non-productive cough GI: Denies: abdominal pain, nausea, vomiting, diarrhea, constipation or hematochezia : Denies: flank pain, difficulty urinating, dysuria or hematuria Musc: Denies: neck pain, back pain or extremity swelling Skin/Breast: Denies: rash or new lesions Neuro: Denies: headache(s) All/Imm: Denies: throat swelling or tongue swelling PFSH ED PFSH: Medical History No pertinent family history Surgical History No pertinent past surgical history Social History Smoking and tobacco status: current every day smoker Physical Exam Const: COMMON NORMALS: no acute distress, patient oriented x3, healthy appearing and alert GENERAL APPEARANCE: cooperative and comfortable HENMT: COMMON NORMALS: normocephalic HEAD & SCALP: normocephalic FACE & SINUS: Facial tenderness on exam of face and sinuses on the right mandible (Mild) MOUTH: Normal oral and palatal mucosa present TEETH & GINGIVA: Yes abnormal tooth and associated gingiva lower right third molar tender and with associated gingival edema and Yes caries (bottom right molars) THROAT: posterior oropharynx normal and uvula midline Neck/C-Spine: COMMON NORMALS: supple GENERAL: Yes normal visual inspection Resp: COMMON NORMALS: normal respiratory effort, No retractions, No use of accessory muscles and clear to auscultation bilaterally AUSCULTATION: clear to auscultation bilaterally Cardio: COMMON NORMALS: regular rate, regular rhythm, S1 normal heart sound present, S2 normal heart sound present, No gallops present (Cardio), No clicks present (Cardio), No murmurs present (Cardio) and Peripheral pulses 2+ throughout RATE: regular rate RHYTHM: regular rhythm HEART SOUNDS: S1 normal heart sound present and S2 normal heart sound present PERIPHERAL PULSES: Peripheral pulses 2+ throughout GI: COMMON NORMALS: Normal to inspection, nondistended, normoactive bowel sounds present, Soft to palpation, non-tender and no masses PALPATION: Yes Soft to palpation : COMMON NORMALS: Yes no CVA tenderness BLADDER/KIDNEY EXAM: Yes no CVA tenderness Back/Pelvis: COMMON NORMALS: no CVA tenderness Extremity: COMMON NORMALS: normal to inspection Neuro: COMMON NORMALS: patient oriented x3 and moves all extremities SENSORIUM/ORIENTATION: Yes alert Skin: GENERAL SKIN EXAM: dry skin Course Vital Signs: Vital signs: Vital Signs Temperature 98.3 F 07/11/21 08:07 Pulse Rate 98 07/11/21 08:07 Respiratory Rate 16 07/11/21 08:07 Blood Pressure 101/73 07/11/21 08:07 Pulse Oximetry 97 07/11/21 08:07 [facility] - Dental/Oral Medical Decision Making Patient is a 46-year-old male comes to the ED with dental pain. Vitals are stable. Patient appears in no acute distress or pain. He has some right lower mandible tenderness to palpation along with some right lower molar tenderness and surrounding gingival edema. Patient diagnosed with pain due to dental caries and discharged home with a prescription for clindamycin. Patient was told to contact his dentist for further evaluation and management of dental pain. Return to ED precautions given. Patient understood and agree with plan. Discharge Plan Discharge Patient Disposition: Home Clinical Impression: Pain due to dental caries Condition: Stable Prescriptions: New clindamycin HCl 150 mg capsule 300 mg PO QID 7 Days Qty: 56 0RF No Action clopidogrel 75 mg tablet 75 mg PO DAILY 0RF Rx Instructions: external med history has rx last filled on 09/04/2019 30d/s-pt states he only takes when he thinks he needs Aspir-81 81 mg Tablet,Delayed Release (Dr/Ec) 81 mg PO DAILY 0RF Rx Instructions: pt states he takes this everyday Discharge Orders: Discharge ED (Routine); Ordered 07/11/21 Ordered By: Jori Sanchez Referrals: Tayla Franklin FNP [Primary Care Provider] - Discharge Diet: Regular Discharge Activity: Increase activity as tolerated Patient Instructions: Dental Caries (Cavities), Dental Abscess (ED) Activity Restrictions/Additional Instructions: Contact your dentist and set up an appointment with them as soon as possible for further evaluation of dental pain. Take medications as prescribed. Return to the ER or your medical provider if condition worsens. Please read and understand discharge instructions. Thank you for choosing [facility] for your healthcare needs today. Please realize this is an emergency room and that we are providing you with a medical screening exam and this may not be complete and all inclusive of all the testing and or work up that you may need to determine your ailment or severity of your illness. It is very important that you follow up as instructed or that you return to the Emergency Department should you have concerns or if your condition changes or worsens in any way. 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
== END 2021-07-11 08:39 | disposition home or self-care (01) ==
PROVIDERS: Emergency Provider Physician Assistant; PCP Nurse Practitioner Family
DX: K02.9 Dental caries, unspecified (principal); Z79.02 Long term (current) use of antithrombotics/antiplatelets; Z79.82 Long term (current) use of aspirin; F17.210 Nicotine dependence, cigarettes, uncomplicated
CPT/HCPCS: 99282

== ENCOUNTER 2021-10-21 18:09 | Emergency (ER) | payer OTHER, SELFPAY ==
--- NOTE | 2021-10-21 18:18 | XRR_ITS ---
PROCEDURE INFORMATION: Exam: XR Left Hand Exam date and time: 10/21/2021 6:29 PM Age: 46 years old Clinical indication: Pain; Hand; Left; Additional info: Injury TECHNIQUE: Imaging protocol: XR Left hand. Views: 3 or more views. COMPARISON: No relevant prior studies available. FINDINGS: Bones/joints: A nondisplaced fracture at the lateral/distal corner of the left scaphoid. Normal bone mineralization. No joint effusion. Joint spaces are maintained. Soft tissues: Mild soft tissue swelling over the scaphoid. No radiopaque foreign body. XR/XR hand LT min 3V* [id number] IMPRESSION: 1. A nondisplaced fracture at the lateral/distal corner of the left scaphoid. 2. Mild soft tissue swelling over the left scaphoid.
--- NOTE | 2021-10-21 18:18 | XRR_ITS ---
PROCEDURE INFORMATION: Exam: XR Right Hand Exam date and time: 10/21/2021 6:29 PM Age: 46 years old Clinical indication: Pain; Hand; Right; Additional info: Injury TECHNIQUE: Imaging protocol: XR Right hand. Views: 3 or more views. COMPARISON: No relevant prior studies available. FINDINGS: Bones/joints: Minimally displaced avulsion fracture at the lateral/distal aspect of the scaphoid. No dislocation. Normal bone mineralization. No joint effusion. Joint spaces are maintained. Soft tissues: Mild soft tissue swelling over the scaphoid. No radiopaque foreign body. XR/XR hand RT min 3V* [id number] IMPRESSION: 1. Minimally displaced avulsion fracture at the lateral/distal aspect of the scaphoid. 2. Mild soft tissue swelling over the scaphoid.
[2021-10-21 19:12] VITALS: BP 125/78; PULSE 79; RESP 16; TEMP 37.7; O2SAT 98
--- NOTE | 2021-10-21 19:43 | XRR_ITS ---
PROCEDURE INFORMATION: Exam: XR Right Knee Exam date and time: 10/21/2021 8:12 PM Age: 46 years old Clinical indication: Pain; Knee; Right; Additional info: Right knee pain after fall TECHNIQUE: Imaging protocol: XR Right knee. Views: 3 views. COMPARISON: No relevant prior studies available. FINDINGS: Bones/joints: No acute fracture. No dislocation. Normal bone mineralization. No joint effusion. Joint spaces are maintained. There is a fabella in the soft tissues posterior to the knee. Soft tissues: No soft tissue swelling. No radiopaque foreign body. XR/XR knee RT 3V* [id number] IMPRESSION: No acute fracture of the right knee. Followup imaging recommended in 7-14 days if clinical concern for fracture persists.
--- NOTE | 2021-10-21 19:44 | ED_ITS ---
HPI - Fall General: Chief Complaint: Fall Stated Complaint: FALL/both hand injury Time Seen by Provider: 10/21/21 18:27 History of Present Illness: Patient is a 46-year-old male comes to the ED with a fall injury. Patient was at work and tripped over a forklift causing him to fall and landed on his hands with his right left arm extended. The forklift he tripped over hit his right knee and he has some pain in his right knee. Most of his pain is in both his right and left hands and says his left hand is bothering him more. He rates his pain a 10 out of 10. Denies any head trauma or loss of consciousness. This is a worker's comp case and paperwork needed to be filled out. Associated symptoms-after fall: Denies abdominal pain, chest pain, headache(s), hematuria or neck pain Review of Systems Const: Denies: fever(s), chills or fatigue Eyes: Denies: change in vision or eye discomfort ENMT: Denies: throat pain, odynophagia, nasal discharge or nasal congestion Card: Denies: chest pain, palpitations, edema, swelling of feet/ankles, dyspnea on exertion or orthopnea Resp: Denies: dyspnea, productive cough or non-productive cough GI: Denies: abdominal pain, nausea, vomiting, diarrhea, constipation or hematochezia : Denies: flank pain, difficulty urinating, dysuria or hematuria Musc: Reports: extremity pain (left and right hand pain); Denies: neck pain, back pain or extremity swelling Skin/Breast: Denies: rash or new lesions Neuro: Denies: headache(s), numbness in extremities or weakness in extremities PFS ED PFSH: Medical History No pertinent family history Surgical History No pertinent past surgical history Social History Smoking and tobacco status: current every day smoker Physical Exam Const: COMMON NORMALS: patient oriented x3 and alert GENERAL APPEARANCE: cooperative HENMT: COMMON NORMALS: normocephalic HEAD & SCALP: normocephalic MOUTH: Normal oral and palatal mucosa present THROAT: posterior oropharynx normal and uvula midline Neck/C-Spine: COMMON NORMALS: supple GENERAL: Yes normal visual inspection Resp: COMMON NORMALS: normal respiratory effort, No retractions, No use of accessory muscles and clear to auscultation bilaterally AUSCULTATION: clear to auscultation bilaterally Cardio: COMMON NORMALS: regular rate, regular rhythm, S1 normal heart sound present, S2 normal heart sound present, No gallops present (Cardio), No clicks present (Cardio), No murmurs present (Cardio) and Peripheral pulses 2+ throughout RATE: regular rate RHYTHM: regular rhythm HEART SOUNDS: S1 normal heart sound present and S2 normal heart sound present PERIPHERAL PULSES: Peripheral pulses 2+ throughout GI: COMMON NORMALS: Normal to inspection, nondistended, normoactive bowel sounds present, Soft to palpation, non-tender and no masses PALPATION: Yes Soft to palpation : COMMON NORMALS: Yes no CVA tenderness BLADDER/KIDNEY EXAM: Yes no CVA tenderness Back/Pelvis: COMMON NORMALS: no CVA tenderness Extremity: NARRATIVE EXTREMITY EXAM: Right and left hands?no visible deformity or swelling noted. Tover palm region of hands. Limited range of motion of wrists and flexion of fingers due to pain. Neurovascular tact. Neuro: COMMON NORMALS: patient oriented x3 and moves all extremities SENSORIUM/ORIENTATION: Yes alert Skin: GENERAL SKIN EXAM: dry skin Course Vital Signs: Vital signs: Vital Signs Temperature 99.9 F H 10/21/21 19:12 Pulse Rate 79 10/21/21 19:12 Respiratory Rate 16 10/21/21 20:26 Blood Pressure 125/78 10/21/21 19:12 Pulse Oximetry 98 10/21/21 19:12 MDM - Fall Medical Decision Making Patient is a 46-year-old male who comes to the ED with bilateral hand pain after fall injury at work. X-rays of right left hand showed bilateral scaphoid fractures. Right and left hands were placed in a thumb spica splint and I placed an order with case management for patient to be referred to Ortho for follow-up. UA drug screen was done and it was clean. Worker's Comp. paperwork was filled out and signed. He was stable for discharge home and sent with a prescription of [place] for pain. Return to ED precautions given. Lab Data Radiology Impressions Hand X-Ray 10/21/21 18:18 IMPRESSION: 1. A nondisplaced fracture at the lateral/distal corner of the left scaphoid. 2. Mild soft tissue swelling over the left scaphoid. Knee X-Ray 10/21/21 19:43 IMPRESSION: No acute fracture of the right knee. Followup imaging recommended in 7-14 days if clinical concern for fracture persists. Laboratory Results Urine Opiates Screen Negative ng/mL (Negative) 10/21/21 19:47 Ur Barbiturates Screen Negative ng/mL (Negative) 10/21/21 19:47 Ur Phencyclidine Scrn Negative ng/mL (Negative) 10/21/21 19:47 Ur Amphetamines Screen Negative ng/mL (Negative) 10/21/21 19:47 U Benzodiazepines Scrn Negative ng/mL (Negative) 10/21/21 19:47 Urine Cocaine Screen Negative ng/mL (Negative) 10/21/21 19:47 U Marijuana (THC) Screen Negative ng/mL (Negative) 10/21/21 19:47 Discharge Plan Discharge Patient Disposition: Home Clinical Impression: Closed fracture of scaphoid of both wrists Qualifiers: Encounter type: initial encounter Qualified Code(s): S62.001A - Unspecified fracture of navicular [scaphoid] bone of right wrist, initial encounter for closed fracture Condition: Stable Prescriptions: No Action clopidogrel 75 mg tablet 75 mg PO DAILY 0RF Rx Instructions: external med history has rx last filled on 09/04/2019 30d/s-pt states he only takes when he thinks he needs Aspir-81 81 mg Tablet,Delayed Release (Dr/Ec) 81 mg PO DAILY 0RF Rx Instructions: pt states he takes this everyday Discharge Orders: Discharge ED (Routine); Ordered 10/21/21 Ordered By: Jori Sanchez Referrals: Tayla Franklin FNP [Primary Care Provider] - Discharge Diet: Regular Discharge Activity: Limit activity as instructed Patient Instructions: Scaphoid Fracture (ED), Opioid Safety Activity Restrictions/Additional Instructions: Follow-up with medical provider as directed. Case management should be contacting you in the next several days to set up an appoint with Ortho for follow-up and further management of fractures. Keep splint on and dry and limit activity with right and left hands to allow for healing. take medications as prescribed. Return to the ER or your medical provider if condition worsens. Please read and understand discharge instructions. Thank you for choosing [facility] for your healthcare needs today. Please realize this is an emergency room and that we are providing you with a medical screening exam and this may not be complete and all inclusive of all the testing and or work up that you may need to determine your ailment or severity of your illness. It is very important that you follow up as instructed or that you return to the Emergency Department should you have concerns or if your condition changes or worsens in any way. 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
[2021-10-21 20:06] LABS: Amphetamines Screen Urine Negative (Negative); Barbiturates Screen Urine Negative (Negative); Benzodiazepines Screen Urine Negative (Negative); Cocaine Screen Urine Negative (Negative); Opiate Screen Urine Negative (Negative); PCP Screen Urine Negative (Negative); THC Screen Urine Negative (Negative)
[2021-10-21 20:26] VITALS: RESP 16
[2021-10-21] MEDS: morphine 4 mg/mL SDV 1 mL IM (20:26)
[2021-10-21] MEDS: HYDROcodone-acetaminophen 7.5-325 mg Tablet 2 TAB PO (20:40)
--- NOTE | 2021-10-24 10:39 | DCPLANNER ---
Addendum entered by Queta Cervantes 10/28/21 11:23: Patient had a follow up appointment scheduled for 10.25.[address] Salguero at ortho - patient did attend appointment. Original Note: customer account manager had message to schedule a follow up appointment for patient with ortho. customer account manager sent patients information to the front office staff at ortho. Patients information will be printed and reviewed. Clinic will call patient with appointment information.
== END 2021-10-21 21:08 | disposition home or self-care (01) ==
PROVIDERS: Emergency Provider Physician Assistant; PCP Nurse Practitioner Family
DX: S62.001A Unspecified fracture of navicular [scaphoid] bone of right wrist, initial encounter for closed fracture (principal); S62.002A Unspecified fracture of navicular [scaphoid] bone of left wrist, initial encounter for closed fracture; W01.0XXA Fall on same level from slipping, tripping and stumbling without subsequent striking against object, initial encounter; M25.561 Pain in right knee
CPT/HCPCS: 73130; 73562; 80306; 96372; 99283; J2270

== ENCOUNTER → 2021-10-25 08:34 | Outpatient (BNVA) | payer OTHER, SELFPAY | PROVIDERS: PCP Nurse Practitioner Family; Referring Provider Physician Assistant; Visit Provider Orthopaedic Surgery | DX: S62.001A Unspecified fracture of navicular [scaphoid] bone of right wrist, initial encounter for closed fracture (principal); S62.002A Unspecified fracture of navicular [scaphoid] bone of left wrist, initial encounter for closed fracture; X58.XXXA Exposure to other specified factors, initial encounter | CPT/HCPCS: 73110 ==

== ENCOUNTER 2021-10-25 10:32 | Outpatient (CLI) | payer OTHER, SELFPAY | END 2021-10-25 10:33 | disposition home or self-care (01) | PROVIDERS: PCP Nurse Practitioner Family; Visit Provider Orthopaedic Surgery | DX: Z46.89 Encounter for fitting and adjustment of other specified devices (principal); S62.014D Nondisplaced fracture of distal pole of navicular [scaphoid] bone of right wrist, subsequent encounter for fracture with routine healing; X58.XXXD Exposure to other specified factors, subsequent encounter | CPT/HCPCS: 97760; L3809 ==

== ENCOUNTER → 2021-11-08 13:50 | Outpatient (BNVA) | payer OTHER, SELFPAY | PROVIDERS: PCP Nurse Practitioner Family; Visit Provider Orthopaedic Surgery | DX: S62.001A Unspecified fracture of navicular [scaphoid] bone of right wrist, initial encounter for closed fracture (principal); X58.XXXA Exposure to other specified factors, initial encounter | CPT/HCPCS: 73110 ==

== ENCOUNTER → 2021-12-06 13:41 | Outpatient (BNVA) | payer OTHER, SELFPAY | PROVIDERS: PCP Nurse Practitioner Family; Visit Provider Orthopaedic Surgery | DX: S62.009D Unspecified fracture of navicular [scaphoid] bone of unspecified wrist, subsequent encounter for fracture with routine healing (principal); W19.XXXD Unspecified fall, subsequent encounter | CPT/HCPCS: 73110 ==

== ENCOUNTER → 2022-01-12 13:20 | Outpatient (BNVA) | payer OTHER, SELFPAY | PROVIDERS: PCP Nurse Practitioner Family; Visit Provider Orthopaedic Surgery | DX: S62.009D Unspecified fracture of navicular [scaphoid] bone of unspecified wrist, subsequent encounter for fracture with routine healing (principal); X58.XXXD Exposure to other specified factors, subsequent encounter | CPT/HCPCS: 73110 ==

== ENCOUNTER 2022-02-07 17:05 | Emergency (ER) | payer OTHER, SELFPAY ==
[2022-02-07 17:43] VITALS: BP 107/78; PULSE 78; RESP 13; TEMP 36.8; O2SAT 98
--- NOTE | 2022-02-07 20:01 | ED_ITS ---
HPI - Extremity Problem General: Chief complaint: Extremity Injury, Upper Stated complaint: wants med refill Time Seen by Provider: 02/07/22 18:00 Source: patient Mode of arrival: ambulatory Limitations: no limitations History of Present Illness: 46-year-old male that has had bilateral scaphoid fractures back in October. He states he is following with Dr. Abraham scheduled have MRI states he is ran out of his hydrocodone's been having increasing pain. He states he had tramadol feels like its not helping his pain pain is currently a 6 out of 10. Denies any new injuries. Associated symptoms: Deny chest pain, fever(s) or rash Review of Systems Const: Denies: fever(s), chills, body aches or change in appetite Eyes: Denies: blurry vision or eye discomfort ENMT: Denies: throat pain or dental pain Card: Denies: chest pain Resp: Denies: dyspnea GI: Denies: abdominal pain, nausea, vomiting or diarrhea : Denies: dysuria Musc: Denies: neck pain or back pain Skin/Breast: Denies: rash Neuro: Denies: headache(s) Psych: Denies: depression Howard/Lymph: Denies: easy bruising All/Imm: Denies: urticaria PFSH ED PFSH: Medical History No pertinent family history Surgical History No pertinent past surgical history Social History Smoking and tobacco status: current every day smoker Physical Exam Const: COMMON NORMALS: no acute distress, patient oriented x3 and healthy appearing HENMT: COMMON NORMALS: normocephalic and atraumatic HEAD & SCALP: normocephalic and atraumatic Eye: COMMON NORMALS: Equal, round and reactive pupils present and EOMs intact bilaterally PUPIL: Yes Equal, round and reactive pupils present Neck/C-Spine: COMMON NORMALS: full ROM and supple Chest: COMMONS NORMALS: normal inspection of the chest Resp: COMMON NORMALS: normal respiratory effort Cardio: COMMON NORMALS: regular rate, regular rhythm and No murmurs present (Cardio) RATE: regular rate RHYTHM: regular rhythm GI: INSPECTION: Yes normal to inspection Extremity: COMMON NORMALS: normal to inspection and full ROM Neuro: COMMON NORMALS: patient oriented x3, moves all extremities and no focal motor deficits Psych: COMMON NORMALS: mental status grossly normal, Normal thought process present and cooperative THOUGHT PROCESS: Normal thought process present Skin: COMMON NORMALS: no rashes or lesions noted and no wounds GENERAL SKIN EXAM: no rashes or lesions noted Course Vital Signs: Vital signs: Vital Signs Temperature 98.3 F 02/07/22 17:43 Pulse Rate 78 02/07/22 17:43 Respiratory Rate 13 02/07/22 17:43 Blood Pressure 107/78 02/07/22 17:43 Pulse Oximetry 98 02/07/22 17:43 Oxygen Delivery Me thod 02/07/22 17:43 MDM - Extremity (Nontraumatic) Medical Decision Making Patient presents for a scaphoid fractures bilaterally back in October. He is currently here wanting refills for his hydrocodone prescription. Informed him we do not do the refills in the ER is able to prescribe him Naprosyn but informed if he needed more pain medicine he needs to see his primary care doctor or Dr. Layton who he is following for scaphoid fracture. No new injuries noted. Discharge Plan Discharge Patient Disposition: Home Clinical Impression: Scaphoid fracture Qualifiers: Encounter type: subsequent encounter Scaphoid bone location: unspecified portion of scaphoid Fracture type: closed Fracture alignment: nondisplaced Laterality: unspecified laterality Condition: Stable Prescriptions: No Action (DME) Thumb Spika Splint See Rx Instructions .Route .MEDSUPPLY Qty: 2 0RF Rx Instructions: As directed hydrocodone-acetaminophen 5-325 mg tablet 1 tab PO Q6H PRN (Reason: pain) 7 Days Qty: 30 0RF tramadol 50 mg tablet 50 mg PO TID PRN (Reason: pain) Qty: 21 0RF clopidogrel 75 mg tablet 75 mg PO DAILY Rx Instructions: external med history has rx last filled on 09/04/2019 30d/s-pt states he only takes when he thinks he needs Aspir-81 81 mg Tablet,Delayed Release (Dr/Ec) 81 mg PO DAILY Rx Instructions: pt states he takes this everyday Discharge Orders: Discharge ED (Routine); Ordered 02/07/22 Ordered By: Keshawn Guerrier Referrals: Rigoberto,JARAD BourneP [Primary Care Provider] - Discharge Diet: Advance as tolerated Discharge Activity: Resume usual activity Patient Instructions: Scaphoid Fracture (ED) Coding Level of Care Code ED Hydrochloric Acid Operator for Uzair Cooper
[2022-02-07] MEDS: HYDROcodone-acetaminophen 5-325 mg Tablet 1 TAB PO (20:04)
[2022-02-07 20:11] VITALS: BP 107/78; PULSE 78; RESP 13; TEMP 36.8; O2SAT 98
== END 2022-02-07 20:12 | disposition home or self-care (01) ==
PROVIDERS: Emergency Provider Emergency Medicine; PCP Nurse Practitioner Family
DX: S62.001A Unspecified fracture of navicular [scaphoid] bone of right wrist, initial encounter for closed fracture (principal); S62.002A Unspecified fracture of navicular [scaphoid] bone of left wrist, initial encounter for closed fracture; Z79.02 Long term (current) use of antithrombotics/antiplatelets; Z79.82 Long term (current) use of aspirin; F17.210 Nicotine dependence, cigarettes, uncomplicated; X58.XXXA Exposure to other specified factors, initial encounter
CPT/HCPCS: 99283

== ENCOUNTER 2022-02-22 12:45 | Outpatient (CLI) | payer OTHER, SELFPAY ==
--- NOTE | 2022-02-22 15:15 | MR_ITS ---
WS: [id number] MRI LEFT WRIST without CONTRAST. COMPARISON: Radiographs 01/12/2022 and 12/06/2021 Multiplanar, multisequence imaging is performed without contrast. Small amount of marrow edema involving the distal scaphoid near the site of the previously described nondisplaced fracture. There is cortical irregularity and also a T1 lucency through the fracture. Inc ompletely healed fracture but there is no displacement of the distal fragment. Questionable minimal v olume loss in the distal fragment. 3 mm nodule of decreased to intermediate signal on all sequences e xtending into the scapholunate ligament. There is a small bony protrusion seen on the radiographs. Connor spect this is a small osteophyte or hypertrophic bone formation from the radial surface extending int o the scapholunate ligament. Scapholunate ligament is difficult to visualize otherwise. No widening o f the scapholunate interval. TFCC is intact although very mild degeneration along the ulnar styloid a ttachment surface. Mild narrowing of the radiocarpal joint space. No soft tissue masses or fluid collections along the tendons or ligaments. No carpal row instability is evident. MR/MR wrist LT wo con* [id number] IMPRESSION: 1. Persistent marrow edema and persistent fracture line involving the very dis luz maria scaphoid. 2. Questionable volume loss in the distal scaphoid fracture fragment. No separ ation. 3. Small osteophyte from the radial articular surface extending into about the scapholunate ligament.
--- NOTE | 2022-02-22 16:00 | MR_ITS ---
WS: [id number] MRI RIGHT WRIST without CONTRAST. COMPARISON: 01/12/2022 Multiplanar, multisequence imaging is performed without contrast. Very small amount of marrow edema involving the distal lateral most aspect of the scaphoid. Very mild irregularity of the cortical surface. No fragmentation or avascular necrosis. Mild narrowing of the radiocarpal joint space. No soft tissue masses are identified. Scapholunate ligament is normal. Triangular fibrocartilage comp whitney is negative. No fluid in the distal radial ulnar joint space. MR/MR wrist RT wo con* [id number] IMPRESSION: 1. Mild persistent marrow edema in the distal most scaphoid. Consistent with a healed fracture. No evidence for avascular necrosis or fragment displacement. 2. No soft tissue mass.
== END 2022-02-22 12:46 | disposition home or self-care (01) ==
LOC: RAD 12:47
PROVIDERS: PCP Nurse Practitioner Family; Visit Provider Orthopaedic Surgery
DX: S62.001D Unspecified fracture of navicular [scaphoid] bone of right wrist, subsequent encounter for fracture with routine healing (principal); S62.002D Unspecified fracture of navicular [scaphoid] bone of left wrist, subsequent encounter for fracture with routine healing; X58.XXXD Exposure to other specified factors, subsequent encounter
CPT/HCPCS: 73221

== ENCOUNTER 2022-08-24 20:07 | Emergency (ER) | payer BC, MEDICAID, SELFPAY ==
[2022-08-24 20:21] VITALS: BP 87/60; PULSE 95; RESP 18; TEMP 36.7; O2SAT 98; BMI 23.0
--- NOTE | 2022-08-24 20:35 | ECG_ITS ---
[facility] Test Date: 2022-08-24 Pat Name: Fabian Gagnon Department: Room: Gender: Male [place] Administrator: : 1975 Requested By: Siva Andres Order Number: [id number] Craig MD: Polina Burgess M.D. Measurements Intervals [place] Rate: 93 P: 81 MT: 114 QRS: 84 QRSD: 84 T: 52 QT: 342 QTc: 427 Interpretive Statements SINUS RHYTHM WITH SHORT MT INTERVAL Compared to ECG 01/26/2020 16:44:21 No significant changes Electronically Signed On 08-24-2022 22:55:12 CDT by Polina Burgess M.D. [email or web address] [email or web address]/store/[id number]
[2022-08-24 20:39] VITALS: BP 89/65; PULSE 106; RESP 18; O2SAT 96
[2022-08-24 20:42] VITALS: BP 93/68; PULSE 96
--- NOTE | 2022-08-24 20:42 | W.ED.FALL ---
Documented by User: Siva Andres MD 09/08/22 01:33 HPI - Fall General: Chief Complaint: Fall Stated Complaint: fall hit head yesterday,dizzy confused Time Seen by Provider: 08/24/22 20:42 History of Present Illness: Mr. Gagnon is a 47-year-old gentleman on aspirin and Plavix presenting to the emergency department for syncopal type episode with continued headache. He reports fall while walking yesterday preceded by dizziness. He fell and hit his head. Unclear loss of consciousness. Since that time he has had headache. Moderate to severe in intensity and splitting feeling on the top of his head. Denies other pain or injury. No other specific changes in health, exacerbating, or alleviating factors identified. Onset (ago): day(s) Fall from: standing Place fall occurred: street Loss of consciousness: Yes Prolonged down time: unclear Symptoms prior to fall: dizziness Location of injury: head Severity: severe Quality: sharp and aching Review of Systems General: Reports: 10 or more systems reviewed and unremarkable except in HPI and below PFSH ED PFSH: Medical History No pertinent family history Surgical History No pertinent past surgical history Social History Smoking and tobacco status: current every day smoker Physical Exam Const: COMMON NORMALS: patient oriented x3 and alert GENERAL APPEARANCE: cooperative and well developed HENMT: COMMON NORMALS: normocephalic and atraumatic HEAD & SCALP: normocephalic and atraumatic THROAT: posterior oropharynx normal Eye: COMMON NORMALS: conjunctivae normal CONJUNCTIVA: Yes conjunctivae normal SCLERA: sclerae normal Neck/C-Spine: COMMON NORMALS: supple and no meningeal signs GENERAL: Yes trachea midline Chest: COMMONS NORMALS: normal palpation of entire chest wall Resp: COMMON NORMALS: normal respiratory effort and clear to auscultation bilaterally EFFORT & INSPECTION: Yes able to speak in complete sentences AUSCULTATION: clear to auscultation bilaterally Cardio: COMMON NORMALS: regular rate and regular rhythm RATE: regular rate RHYTHM: regular rhythm GI: COMMON NORMALS: Soft to palpation PALPATION: Yes Soft to palpation, Yes Tenderness to palpation present (GI), No Guarding due to palpation present (GI) and No Rigid due to palpation Extremity: GENERAL: Yes normal exam except as noted and No edema Neuro: COMMON NORMALS: patient oriented x3, CN's II-XII intact bilaterally, moves all extremities, no focal motor deficits and no sensory deficits noted SENSORIUM/ORIENTATION: Yes alert and No Orientation impaired MENINGEAL SIGNS: Yes no meningeal signs Psych: COMMON NORMALS: mental status grossly normal and Normal thought process present THOUGHT PROCESS: Normal thought process present Course Vital Signs: Vital signs: Vital Signs Temperature 98.1 F 08/24/22 20:21 Pulse Rate 67 08/25/22 03:21 Respiratory Rate 16 08/25/22 03:21 Blood Pressure 91/62 08/25/22 03:21 Pulse Oximetry 96 08/25/22 03:21 Oxygen Delivery Me thod 08/25/22 03:21 MDM - Fall Medical Decision Making 47-year-old gentleman presenting with headache after head injury head CT exam performed and as noted above. Patient does have mildly low blood pressure though is not significantly tachycardic and has no evidence of blood loss or reported signs and symptoms of infection. EKG notable for sinus rhythm with normal axis and intervals, no STEMI. Labs with no leukocytosis, normal hemoglobin and platelet count. Metabolic panel without CBC derangement. Negative range 2-hour delta troponin. Urinalysis without evidence of infection. CT demonstrates no acute intracranial abnormality. Cervical spine negative for pathology. Chest x-ray with no lobar consolidation or pneumothorax. CT abdomen pelvis demonstrates no acute pathology, incidental findings of imaging were discussed with patient. Patient treated with analgesia with some improvement symptoms, IV fluids ordered and repeat bolus ordered with patient care and end to Dr. Guerrier pending reassessment after second fluid bolus. Likely plan for discharge. Patient presents with close head injury after a fall his imaging here is all normal blood work is all normal he did have some hypotension no signs of sepsis his blood pressure improved he is able ambulate he felt improved as well he is stable for discharge he is to follow-up with PCP and return if worsening. Medical Records I reviewed the patient's medical records. Lab Data I reviewed the patient's lab results. 08/24/22 20:56 08/24/22 20:56 Radiology Impressions Cervical Spine CT 08/24/22 20:50 IMPRESSION: 1. No fracture or acute finding. 2. Degenerative changes, greatest at C5-C6 and C6-C7. Chest X-Ray 08/24/22 20:50 IMPRESSION: No acute findings. Head CT 08/24/22 20:50 IMPRESSION: No acute intracranial abnormality. Abdomen/Pelvis CT 08/25/22 02:12 IMPRESSION: 1. Normal appendix. 2. No retroperitoneal or intra-abdominal hematoma. 3. No hydronephrosis of either kidney. No visible ureteral calculus. No perinephric fluid, see above discussion. 4. Prostate enlargement and possible mild urinary bladder wall thickening, see above. 5. Somewhat distended stomach. 6. No free air or significant bowel distention. 7. Other findings discussed above. Laboratory Results WBC 9.8 10^3/uL (4.0-10.0) 08/24/22 20:56 RBC 4.28 10^6/uL (4.1-5.3) 08/24/22 20:56 Hgb 13.9 g/dL (11.7-16.6) 08/24/22 20:56 Hct 40.5 % (42.0-52.0) L 08/24/22 20:56 MCV 94.6 fl (80-94) H 08/24/22 20:56 MCH 32.5 pg (28.0-34.0) 08/24/22 20:56 MCHC 34.3 g/dL (30.0-36.0) 08/24/22 20:56 RDW 13.0 % (12.1-15.1) 08/24/22 20:56 Plt Count 278 10^3/cmm (130-400) 08/24/22 20:56 MPV 9.5 fL (7.4-10.4) 08/24/22 20:56 Neut % (Auto) 47.9 % 08/24/22 20:56 Lymph % (Auto) 39.8 % 08/24/22 20:56 [place] % (Auto) 9.6 % 08/24/22 20:56 Eos % (Auto) 1.6 % 08/24/22 20:56 Baso % (Auto) 0.8 % 08/24/22 20:56 Neut # (Auto) 4.66 10^3/uL (1.8-7.7) 08/24/22 20:56 Lymph # (Auto) 3.9 10^3/uL (0.8-4.8) 08/24/22 20:56 [place] # (Auto) 0.9 10^3/uL (0.2-0.9) 08/24/22 20:56 Eos # (Auto) 0.2 10^3/uL (0.0-0.8) 08/24/22 20:56 Baso # (Auto) 0.1 10^3/uL (0.0-0.1) 08/24/22 20:56 Nucleated RBC % (auto) 0 % 08/24/22 20:56 Nucleated RBCs # 0.0 /100WBC 08/24/22 20:56 ESR 4 mm/hr (0-10) 08/25/22 00:15 Sodium 139 mmol/L (136-145) 08/24/22 20:56 Potassium 4.2 mmol/L (3.5-5.1) 08/24/22 20:56 Chloride 102 mmol/L (98-107) 08/24/22 20:56 Carbon Dioxide 25 mmol/L (22-29) 08/24/22 20:56 Anion Gap 16.2 (5-19) 08/24/22 20:56 BUN 24 mg/dL (6-20) H 08/24/22 20:56 Creatinine 1.0 mg/dL (0.7-1.2) 08/24/22 20:56 GFR Calculation 80.1 mL/min (90-130) L 08/24/22 20:56 Glucose 80 mg/dL (65-115) 08/24/22 20:56 POC Glucose 100 mg/dL (70-110) 08/24/22 20:58 Calculated Osmolality 291 mOsm/kg (285-295) 08/24/22 20:56 Lactate 0.7 mmol/L (0.5-2.2) 08/25/22 00:15 Calcium 9.3 mg/dL (8.5-10.5) 08/24/22 20:56 Total Bilirubin 0.7 mg/dL (0.15-1.2) 08/24/22 20:56 AST 25 U/L (0-40) 08/24/22 20:56 ALT 14 U/L (0-41) 08/24/22 20:56 Alkaline Phosphatase 45 U/L (40-130) 08/24/22 20:56 Troponin T Baseline 9 ng/L (0-15) 08/24/22 20:56 Troponin T 120 Minute 8.00 ng/L (0-15) 08/24/22 23:01 Delta Troponin T -1 ABS# (0-10) L 08/24/22 23:01 C-Reactive Protein 4.3 mg/L (0.0-4.9) 08/25/22 00:15 Total Protein 7.2 g/dL (6.6-8.7) 08/24/22 20:56 Albumin 4.1 g/dL (3.5-5.2) 08/24/22 20:56 Globulin 3.1 g/dL (1.3-4.6) 08/24/22 20:56 TSH 0.68 uIU/mL (0.27-4.20) 08/24/22 20:56 Urine Color Yellow (Yellow) 08/25/22 00:04 Urine Appearance Clear (CLEAR) 08/25/22 00:04 Urine pH 5 (5-7) 08/25/22 00:04 Ur Specific [place] 1.025 (1.005-1.030) 08/25/22 00:04 Urine Protein Trace (Negative) 08/25/22 00:04 Urine Glucose (UA) Norm (Normal) 08/25/22 00:04 Urine Ketones 1+ (Negative) H 08/25/22 00:04 Urine Blood 3+ (Negative) H 08/25/22 00:04 Urine Nitrate Negative (Negative) 08/25/22 00:04 Urine Bilirubin 1+ (Negative) H 08/25/22 00:04 Urine Urobilinogen 1 mg/dL (Negative) H 08/25/22 00:04 Ur Leukocyte Esterase Negative (Negative) 08/25/22 00:04 Urine RBC 0-4 /hpf (0-2) H 08/25/22 00:04 Urine WBC 0-4 /hpf (0-5) H 08/25/22 00:04 Ur Squamous Epith Cells 0-4 /hpf (0-5) H 08/25/22 00:04 Amorphous Sediment Not Reportable 08/25/22 00:04 Urine Bacteria Trace /hpf (NONE) 08/25/22 00:04 Urine Mucus 1+ /hpf 08/25/22 00:04 Salicylates < 0.3 mg/dL (3-10) L 08/24/22 20:56 Urine Opiates Screen Negative ng/mL (Negative) 08/25/22 00:04 Acetaminophen < 5.0 ug/mL (10-30) L 08/24/22 20:56 Ur Barbiturates Screen Negative ng/mL (Negative) 08/25/22 00:04 Ur Phencyclidine Scrn Negative ng/mL (Negative) 08/25/22 00:04 Ur Amphetamines Screen Negative ng/mL (Negative) 08/25/22 00:04 U Benzodiazepines Scrn Negative ng/mL (Negative) 08/25/22 00:04 Urine Cocaine Screen Negative ng/mL (Negative) 08/25/22 00:04 U Marijuana (THC) Screen Negative ng/mL (Negative) 08/25/22 00:04 Ethyl Alcohol < 10 mg/dL (0-10) 08/24/22 20:56 Discharge Plan Discharge Patient Disposition: Home Clinical Impression: CHI (closed head injury), Orthostatic hypotension, Dehydration Condition: Stable Prescriptions: No Action (DME) Thumb Spika Splint See Rx Instructions .Route .MEDSUPPLY Qty: 2 0RF Rx Instructions: As directed hydrocodone-acetaminophen 5-325 mg tablet 1 tab PO Q6H PRN (Reason: pain) 7 Days Qty: 30 0RF tramadol 50 mg tablet 50 mg PO TID PRN (Reason: pain) Qty: 21 0RF clopidogrel 75 mg tablet 75 mg PO DAILY Rx Instructions: external med history has rx last filled on 09/04/2019 30d/s-pt states he only takes when he thinks he needs Aspir-81 81 mg Tablet,Delayed Release (Dr/Ec) 81 mg PO DAILY Rx Instructions: pt states he takes this everyday Discharge Orders: Discharge ED (Routine); Ordered 08/25/22 Ordered By: Keshawn Guerrier Referrals: Tayla Franklin FNP [Primary Care Provider] - Discharge Diet: Usual diet Discharge Activity: Resume usual activity Patient Instructions: Dehydration (ED), Concussion (ED), Opioid Safety, Pain Management Activity Restrictions/Additional Instructions: Thank you for visiting the emergency department. You were seen and evaluated for symptoms associated with recent history of head injury. The exact cause of your symptoms is unclear though likely related to concussion and dehydration. We are pleased that you had improvement in the emergency department. Please ensure that you are staying hydrated. Please follow-up with a primary care provider. You may use [id number] medications such as acetaminophen and ibuprofen for pain however please do not exceed the daily recommended dosage as listed on the packaging and please keep in mind that many namebrand medications contain the same active ingredients. Please avoid these medications if previously instructed to do so by another physician due to other underlying medical condition. Return to the emergency department for uncontrolled symptoms or anything else that you are concerned about and feel needs emergency department evaluation. Coding Level of Care Code ED Technical Training Specialist for Chg Fwd Documented by User: Keshawn Guerrier MD 08/25/22 04:01 HPI - Fall General: Chief Complaint: Fall Stated Complaint: fall hit head yesterday,dizzy confused Time Seen by Provider: 08/24/22 20:42 [facility] ED PFSH: Medical History No pertinent family history Surgical History No pertinent past surgical history Social History Smoking and tobacco status: current every day smoker Course Vital Signs: Vital signs: Vital Signs Temperature 98.1 F 08/24/22 20:21 Pulse Rate 67 08/25/22 03:21 Respiratory Rate 16 08/25/22 03:21 Blood Pressure 91/62 08/25/22 03:21 Pulse Oximetry 96 08/25/22 03:21 Oxygen Delivery Me thod 08/25/22 03:21 MDM - Fall Medical Decision Making Patient presents with close head injury after a fall his imaging here is all normal blood work is all normal he did have some hypotension no signs of sepsis his blood pressure improved he is able ambulate he felt improved as well he is stable for discharge he is to follow-up with PCP and return if worsening. Lab Data 08/24/22 20:56 08/24/22 20:56 Radiology Impressions Cervical Spine CT 08/24/22 20:50 IMPRESSION: 1. No fracture or acute finding. 2. Degenerative changes, greatest at C5-C6 and C6-C7. Chest X-Ray 08/24/22 20:50 IMPRESSION: No acute findings. Head CT 08/24/22 20:50 IMPRESSION: No acute intracranial abnormality. Abdomen/Pelvis CT 08/25/22 02:12 IMPRESSION: 1. Normal appendix. 2. No retroperitoneal or intra-abdominal hematoma. 3. No hydronephrosis of either kidney. No visible ureteral calculus. No perinephric fluid, see above discussion. 4. Prostate enlargement and possible mild urinary bladder wall thickening, see above. 5. Somewhat distended stomach. 6. No free air or significant bowel distention. 7. Other findings discussed above. Laboratory Results WBC 9.8 10^3/uL (4.0-10.0) 08/24/22 20:56 RBC 4.28 10^6/uL (4.1-5.3) 08/24/22 20:56 Hgb 13.9 g/dL (11.7-16.6) 08/24/22 20:56 Hct 40.5 % (42.0-52.0) L 08/24/22 20:56 MCV 94.6 fl (80-94) H 08/24/22 20:56 MCH 32.5 pg (28.0-34.0) 08/24/22 20:56 MCHC 34.3 g/dL (30.0-36.0) 08/24/22 20:56 RDW 13.0 % (12.1-15.1) 08/24/22 20:56 Plt Count 278 10^3/cmm (130-400) 08/24/22 20:56 MPV 9.5 fL (7.4-10.4) 08/24/22 20:56 Neut % (Auto) 47.9 % 08/24/22 20:56 Lymph % (Auto) 39.8 % 08/24/22 20:56 [place] % (Auto) 9.6 % 08/24/22 20:56 Eos % (Auto) 1.6 % 08/24/22 20:56 Baso % (Auto) 0.8 % 08/24/22 20:56 Neut # (Auto) 4.66 10^3/uL (1.8-7.7) 08/24/22 20:56 Lymph # (Auto) 3.9 10^3/uL (0.8-4.8) 08/24/22 20:56 [place] # (Auto) 0.9 10^3/uL (0.2-0.9) 08/24/22 20:56 Eos # (Auto) 0.2 10^3/uL (0.0-0.8) 08/24/22 20:56 Baso # (Auto) 0.1 10^3/uL (0.0-0.1) 08/24/22 20:56 Nucleated RBC % (auto) 0 % 08/24/22 20:56 Nucleated RBCs # 0.0 /100WBC 08/24/22 20:56 ESR 4 mm/hr (0-10) 08/25/22 00:15 Sodium 139 mmol/L (136-145) 08/24/22 20:56 Potassium 4.2 mmol/L (3.5-5.1) 08/24/22 20:56 Chloride 102 mmol/L (98-107) 08/24/22 20:56 Carbon Dioxide 25 mmol/L (22-29) 08/24/22 20:56 Anion Gap 16.2 (5-19) 08/24/22 20:56 BUN 24 mg/dL (6-20) H 08/24/22 20:56 Creatinine 1.0 mg/dL (0.7-1.2) 08/24/22 20:56 GFR Calculation 80.1 mL/min (90-130) L 08/24/22 20:56 Glucose 80 mg/dL (65-115) 08/24/22 20:56 POC Glucose 100 mg/dL (70-110) 08/24/22 20:58 Calculated Osmolality 291 mOsm/kg (285-295) 08/24/22 20:56 Lactate 0.7 mmol/L (0.5-2.2) 08/25/22 00:15 Calcium 9.3 mg/dL (8.5-10.5) 08/24/22 20:56 Total Bilirubin 0.7 mg/dL (0.15-1.2) 08/24/22 20:56 AST 25 U/L (0-40) 08/24/22 20:56 ALT 14 U/L (0-41) 08/24/22 20:56 Alkaline Phosphatase 45 U/L (40-130) 08/24/22 20:56 Troponin T Baseline 9 ng/L (0-15) 08/24/22 20:56 Troponin T 120 Minute 8.00 ng/L (0-15) 08/24/22 23:01 Delta Troponin T -1 ABS# (0-10) L 08/24/22 23:01 C-Reactive Protein 4.3 mg/L (0.0-4.9) 08/25/22 00:15 Total Protein 7.2 g/dL (6.6-8.7) 08/24/22 20:56 Albumin 4.1 g/dL (3.5-5.2) 08/24/22 20:56 Globulin 3.1 g/dL (1.3-4.6) 08/24/22 20:56 TSH 0.68 uIU/mL (0.27-4.20) 08/24/22 20:56 Urine Color Yellow (Yellow) 08/25/22 00:04 Urine Appearance Clear (CLEAR) 08/25/22 00:04 Urine pH 5 (5-7) 08/25/22 00:04 Ur Specific [place] 1.025 (1.005-1.030) 08/25/22 00:04 Urine Protein Trace (Negative) 08/25/22 00:04 Urine Glucose (UA) Norm (Normal) 08/25/22 00:04 Urine Ketones 1+ (Negative) H 08/25/22 00:04 Urine Blood 3+ (Negative) H 08/25/22 00:04 Urine Nitrate Negative (Negative) 08/25/22 00:04 Urine Bilirubin 1+ (Negative) H 08/25/22 00:04 Urine Urobilinogen 1 mg/dL (Negative) H 08/25/22 00:04 Ur Leukocyte Esterase Negative (Negative) 08/25/22 00:04 Urine RBC 0-4 /hpf (0-2) H 08/25/22 00:04 Urine WBC 0-4 /hpf (0-5) H 08/25/22 00:04 Ur Squamous Epith Cells 0-4 /hpf (0-5) H 08/25/22 00:04 Amorphous Sediment Not Reportable 08/25/22 00:04 Urine Bacteria Trace /hpf (NONE) 08/25/22 00:04 Urine Mucus 1+ /hpf 08/25/22 00:04 Salicylates < 0.3 mg/dL (3-10) L 08/24/22 20:56 Urine Opiates Screen Negative ng/mL (Negative) 08/25/22 00:04 Acetaminophen < 5.0 ug/mL (10-30) L 08/24/22 20:56 Ur Barbiturates Screen Negative ng/mL (Negative) 08/25/22 00:04 Ur Phencyclidine Scrn Negative ng/mL (Negative) 08/25/22 00:04 Ur Amphetamines Screen Negative ng/mL (Negative) 08/25/22 00:04 U Benzodiazepines Scrn Negative ng/mL (Negative) 08/25/22 00:04 Urine Cocaine Screen Negative ng/mL (Negative) 08/25/22 00:04 U Marijuana (THC) Screen Negative ng/mL (Negative) 08/25/22 00:04 Ethyl Alcohol < 10 mg/dL (0-10) 08/24/22 20:56 Discharge Plan Discharge Patient Disposition: Home Clinical Impression: CHI (closed head injury), Orthostatic hypotension, Dehydration Condition: Stable Prescriptions: No Action (DME) Thumb Spika Splint See Rx Instructions .Route .MEDSUPPLY Qty: 2 0RF Rx Instructions: As directed hydrocodone-acetaminophen 5-325 mg tablet 1 tab PO Q6H PRN (Reason: pain) 7 Days Qty: 30 0RF tramadol 50 mg tablet 50 mg PO TID PRN (Reason: pain) Qty: 21 0RF clopidogrel 75 mg tablet 75 mg PO DAILY Rx Instructions: external med history has rx last filled on 09/04/2019 30d/s-pt states he only takes when he thinks he needs Aspir-81 81 mg Tablet,Delayed Release (Dr/Ec) 81 mg PO DAILY Rx Instructions: pt states he takes this everyday Discharge Orders: Discharge ED (Routine); Ordered 08/25/22 Ordered By: Keshawn Guerrier Referrals: Franklin,Tayla MAIL SERVICE COORDINATOR [Primary Care Provider] - Discharge Diet: Usual diet Discharge Activity: Resume usual activity Patient Instructions: Dehydration (ED), Concussion (ED), Opioid Safety, Pain Management Activity Restrictions/Additional Instructions: Thank you for visiting the emergency department. You were seen and evaluated for symptoms associated with recent history of head injury. The exact cause of your symptoms is unclear though likely related to concussion and dehydration. We are pleased that you had improvement in the emergency department. Please ensure that you are staying hydrated. Please follow-up with a primary care provider. You may use [id number] medications such as acetaminophen and ibuprofen for pain however please do not exceed the daily recommended dosage as listed on the packaging and please keep in mind that many namebrand medications contain the same active ingredients. Please avoid these medications if previously instructed to do so by another physician due to other underlying medical condition. Return to the emergency department for uncontrolled symptoms or anything else that you are concerned about and feel needs emergency department evaluation. Coding Level of Care Code ED Technical Training Specialist for Uzair Cooper
--- NOTE | 2022-08-24 20:48 | PC.NURSE ---
Pt awake and alert in ER room, laying in bed. States he is still feeling dizzy, states sometimes I see my dad , when asked about this he states I see spirits sometimes .
--- NOTE | 2022-08-24 20:50 | CTR_ITS ---
PROCEDURE INFORMATION: Exam: CT Cervical Spine Without Contrast Exam date and time: 08/24/2022 9:10 PM Age: 47 years old Clinical indication: Injury or trauma; Fall; Unconscious; Additional info: Syncope TECHNIQUE: Imaging protocol: Computed tomography of the cervical spine without contrast. Radiation optimization: All CT scans at this facility use at least one of these dose optimization techniques: automated exposure control; mA and/or kV adjustment per patient size (includes targeted exams where dose is matched to clinical indication); or iterative reconstruction. REPORTING DATA: Count of CT and Cardiac NM exams in prior 12 months: This patient has received [address] and 0 known cardiac nuclear medicine studies in the 12 months prior to the current study. COMPARISON: CT angio neck [id number] 06/18/2017 8:38 AM RADIATION DOSE METRICS: Total DLP (mGy-cm): 197.1 FINDINGS: Bones/joints: Straightening of the lordosis. The vertebral body stature is intact. No fracture. Trace retrograde subluxation of C6 on C7. The facets are intact with degenerative changes. Disc space narrowing with degenerative endplate changes at C5-C6 and C6-C7. Moderate left bony foraminal stenosis at C5-C6 and C6-C7. No significant central canal stenosis. Lungs: Lung apices are normal. Vasculature: Partially visualized stent in the left internal jugular vein. Soft tissues: Multiple clips in the left neck. CT/CT cervical spin wo con* [id number] IMPRESSION: 1. No fracture or acute finding. 2. Degenerative changes, greatest at C5-C6 and C6-C7.
--- NOTE | 2022-08-24 20:50 | XRR_ITS ---
PROCEDURE INFORMATION: Exam: XR Chest Exam date and time: 08/24/2022 9:03 PM Age: 47 years old Clinical indication: Injury or trauma; Fall; Other: Fell and hit his head yesterday, dizzy and confused TECHNIQUE: Imaging protocol: Radiologic exam of the chest. Views: 1 view. COMPARISON: CR XR chest 1V portable [id number] 01/26/2020 3:22 PM FINDINGS: Tubes, catheters and devices: Surgical clips in the left neck. Lungs: Unremarkable. No consolidation. Pleural spaces: Unremarkable. No pleural effusion. No pneumothorax. Heart/Mediastinum: Unremarkable. No cardiomegaly. Vasculature: Vascular stent in the superior right mediastinum. Bones/joints: Unremarkable. XR/XR chest 1V portable [id number] IMPRESSION: No acute findings.
--- NOTE | 2022-08-24 20:50 | CTR_ITS ---
PROCEDURE INFORMATION: Exam: CT Head Without Contrast Exam date and time: 08/24/2022 9:10 PM Age: 47 years old Clinical indication: Pain and injury or trauma; Blunt trauma (contusions or hematomas); Headache; Patient HX: Fall yesterday with positive loc. C/O GODINEZ with dizziness. ; Additional info: Syncope, headache TECHNIQUE: Imaging protocol: Computed tomography of the head without contrast. Radiation optimization: All CT scans at this facility use at least one of these dose optimization techniques: automated exposure control; mA and/or kV adjustment per patient size (includes targeted exams where dose is matched to clinical indication); or iterative reconstruction. REPORTING DATA: Count of CT and Cardiac NM exams in prior 12 months: This patient has received [address] and 0 known cardiac nuclear medicine studies in the 12 months prior to the current study. COMPARISON: CT angio neck [id number] 06/18/2017 8:38 AM RADIATION DOSE METRICS: Total DLP (mGy-cm): 1347.9 FINDINGS: Brain: Mild cortical volume loss. No abnormal brain attenuation. No intracranial hemorrhage. Cerebral ventricles: No ventriculomegaly. Paranasal sinuses: Mild mucosal thickening in the ethmoid air cells and inferior left frontal sinus. No air-fluid level. Mastoid air cells: Visualized mastoid air cells are well aerated. Bones/joints: Unremarkable. No acute fracture. Soft tissues: Unremarkable. CT/CT head wo con* [id number] IMPRESSION: No acute intracranial abnormality.
[2022-08-24] MEDS: sodium chloride 0.9% 1,000 ML 999 ML IV ×2 (20:58→22:30)
[2022-08-24 21:13] LABS: Basophils # 0.1 10^3/uL (0.0-0.1); Basophils % 0.8 %; Eosinophils # 0.2 10^3/uL (0.0-0.8); Eosinophils % 1.6 %; Hematocrit 40.5 % (42.0-52.0); Hemoglobin 13.9 g/dL (11.7-16.6); Lymphocytes # 3.9 10^3/uL (0.8-4.8); Lymphocytes % 39.8 %; Mean Corpuscular HGB Conc 34.3 g/dL (30.0-36.0); Mean Corpuscular Hemoglobin 32.5 pg (28.0-34.0); Mean Corpuscular Volume 94.6 fl (80-94); Mean Platelet Volume 9.5 fL (7.4-10.4); Monocytes # 0.9 10^3/uL (0.2-0.9); Monocytes % 9.6 %; Neutrophils # 4.66 10^3/uL (1.8-7.7); Neutrophils % 47.9 %; Nucleated Red Blood Cells % 0 %; Platelet Count 278 10^3/cmm (130-400); Red Blood Count 4.28 10^6/uL (4.1-5.3); White Blood Count 9.8 10^3/uL (4.0-10.0)
--- NOTE | 2022-08-24 21:30 | PC.NURSE ---
Resting in bed with eyes closed, awoke easily to voice. Denies needs.
[2022-08-24 21:33] VITALS: BP 81/59; PULSE 85; RESP 17; O2SAT 98
[2022-08-24 21:35] LABS: Troponin(5th) Baseline 9 ng/L (0-15)
[2022-08-24 21:44] LABS: Alanine Aminotransferase 14 U/L (0-41); Albumin Level 4.1 g/dL (3.5-5.2); Alkaline Phosphatase 45 U/L (40-130); Aspartate Amino Transferase 25 U/L (0-40); Blood Urea Nitrogen 24 mg/dL (6-20); Calcium 9.3 mg/dL (8.5-10.5); Carbon Dioxide 25 mmol/L (22-29); Chloride 102 mmol/L (98-107); Globulin 3.1 g/dL (1.3-4.6); Glomerular Filtration Rate 80.1 mL/min (90-130); Glucose 80 mg/dL (65-115); Osmolality Calculated 291 mOsm/kg (285-295); Sodium 139 mmol/L (136-145); Thyroid Stimulating Hormone 0.68 uIU/mL (0.27-4.20); Total Bilirubin 0.7 mg/dL (0.15-1.2); Total Protein 7.2 g/dL (6.6-8.7)
[2022-08-24 21:45] LABS: Acetaminophen < 5.0 ug/mL (10-30); Alcohol Level < 10 mg/dL (0-10); Salicylate < 0.3 mg/dL (3-10)
[2022-08-24 21:46] LABS: Anion Gap 16.2 (5-19); Potassium 4.2 mmol/L (3.5-5.1)
[2022-08-24 22:30] VITALS: BP 93/64; BP 93/68; PULSE 83; PULSE 91
[2022-08-24] MEDS: ketorolac 30 mg/mL INJ 15 MG IVP (22:33)
[2022-08-24] MEDS: acetaminophen 500 mg Tablet 1000 MG PO (22:33)
--- NOTE | 2022-08-24 22:50 | ECG_ITS ---
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 Measurements Intervals [place] Rate: 82 P: 77 MN: 121 QRS: 85 QRSD: 89 T: 54 QT: 369 QTc: 432 Interpretive Statements SINUS RHYTHM Compared to ECG 08/24/2022 20:35:26 Short MN interval no longer present Electronically Signed On 08-25-2022 23:12:50 CDT by Polina Burgess M.D. [id number]
[2022-08-24 23:38] LABS: Troponin 5 2HR Delta -1 ABS# (0-10)
[2022-08-24 23:40] VITALS: BP 82/56; PULSE 85; RESP 16; O2SAT 94
[2022-08-25 00:23] LABS: Erythrocyte Sedimentation Rate 4 mm/hr (0-10)
[2022-08-25 00:29] VITALS: BP 101/67; PULSE 75; RESP 16; O2SAT 99
[2022-08-25 00:44] LABS: Amphetamines Screen Urine Negative (Negative); Barbiturates Screen Urine Negative (Negative); Benzodiazepines Screen Urine Negative (Negative); Cocaine Screen Urine Negative (Negative); Opiate Screen Urine Negative (Negative); PCP Screen Urine Negative (Negative); Specific Gravity, Urine 1.025 (1.005-1.030); THC Screen Urine Negative (Negative); Urine Appearance Clear (CLEAR); Urine Color Yellow (Yellow); pH Urine 5 (5-7)
[2022-08-25 00:44] LABS: C Reactive Protein 4.3 mg/L (0.0-4.9); Lactate (Lactic Acid level) 0.7 mmol/L (0.5-2.2)
[2022-08-25 00:45] LABS: Add Urine Microscopic? YES; Bilirubin Urine 1+ (Negative); Blood Urine 3+ (Negative); Glucose Urine UA Norm (Normal); Ketones Urine 1+ (Negative); Leukocyte Esterase Urine Negative (Negative); Nitrate Urine Negative (Negative); Protein Urine Trace (Negative); Urobilinogen Urine 1 mg/dL (Negative)
[2022-08-25 00:46] LABS: Bacteria Urine TRACE /hpf; Mucus Urine 1+ /hpf; RBC Urine 0-4 /hpf (0-2); Squamous Epithelial Cell Urine 0-4 /hpf (0-5); WBC Urine 0-4 /hpf (0-5)
[2022-08-25 01:49] VITALS: BP 85/54; PULSE 63; RESP 16; O2SAT 97
[2022-08-25 02:00] VITALS: BP 83/45; PULSE 77; RESP 14; O2SAT 95
--- NOTE | 2022-08-25 02:12 | CTR_ITS ---
PROCEDURE INFORMATION: Exam: CT Abdomen And Pelvis With Contrast Exam date and time: 08/25/2022 2:31 AM Age: 47 years old Clinical indication: Other: Hypotension. Hematuria. Patient HX: C/O abd pain. Persistently hypotensive while in er after infusion of 2 liters of saline. Microhematuria. TECHNIQUE: Imaging protocol: Computed tomography of the abdomen and pelvis with contrast. Radiation optimization: All CT scans at this facility use at least one of these dose optimization techniques: automated exposure control; mA and/or kV adjustment per patient size (includes targeted exams where dose is matched to clinical indication); or iterative reconstruction. Contrast material: OMNI 350; Contrast volume: 100 ml; Contrast route: INTRAVENOUS (IV); REPORTING DATA: Count of CT and Cardiac NM exams in prior 12 months: This patient has received 2 known CTs and 0 known cardiac nuclear medicine studies in the 12 months prior to the current study. COMPARISON: No relevant prior studies available. RADIATION DOSE METRICS: Total DLP (mGy-cm): 417.07 FINDINGS: Lungs: Mild probable atelectasis in the posterior lower lungs. No pleural fluid. Liver: Unremarkable. Gallbladder and bile ducts: The gallbladder appears partially contracted. No visible gallstones by CT. No biliary tree dilation. Pancreas: Unremarkable. Spleen: Unremarkable. Adrenal glands: Unremarkable. Kidneys and ureters: No hydronephrosis of either kidney. No visible ureteral calculus. No significant perinephric fluid or obvious inhomogeneous renal enhancement. Lack of the above findings on CT does not entirely exclude the diagnosis of acute pyelonephritis. Please correlate with clinical and laboratory evaluation. Stomach and bowel: The stomach appears somewhat distended at the time of scanning. Please correlate clinically. No significant bowel distention. There are no CT findings to strongly suggest diverticulitis. Appendix: The appendix is visualized and appears normal. Intraperitoneal space: No free intraperitoneal air, or ascites. Vasculature: Moderate aortic and iliac artery calcifications for age. No evidence for abdominal aortic aneurysm. Lymph nodes: No retroperitoneal adenopathy. Urinary bladder: No visible calculus in the urinary bladder. Possibly some mild diffuse urinary bladder wall thickening. However, evaluation is somewhat limited, as the bladder is not well distended. This may be related to the prostate enlargement. While nonspecific, this could also indicate evidence for cystitis. Please correlate clinically. Reproductive: Prostate enlargement with transverse diameter of 4.5 cm. Bones/joints: No significant acute finding. Soft tissues: No retroperitoneal or intra-abdominal hematoma. CT/CT abdomen pelvis w con* [id number] IMPRESSION: 1. Normal appendix. 2. No retroperitoneal or intra-abdominal hematoma. 3. No hydronephrosis of either kidney. No visible ureteral calculus. No perinephric fluid, see above discussion. 4. Prostate enlargement and possible mild urinary bladder wall thickening, see above. 5. Somewhat distended stomach. 6. No free air or significant bowel distention. 7. Other findings discussed above.
[2022-08-25] MEDS: iohexol 350 mg/mL 500 mL Btl (per mL) IV (02:33)
--- NOTE | 2022-08-25 03:14 | PC.NURSE ---
Patient tolerated ambulation well, did state that he felt dizzy and light headed. Retook patient blood pressure after ambulation it was 91/62.
[2022-08-25 03:21] VITALS: BP 91/62; PULSE 67; RESP 16; O2SAT 96
[2022-08-27 14:39] LABS: Glucose Point of Care 100 mg/dL (70-110)
== END 2022-08-25 03:40 | disposition home or self-care (01) ==
PROVIDERS: Emergency Medicine; Emergency Provider Emergency Medicine; PCP Nurse Practitioner Family
DX: S09.90XA Unspecified injury of head, initial encounter (principal); I95.1 Orthostatic hypotension; E86.0 Dehydration; F17.200 Nicotine dependence, unspecified, uncomplicated; Z79.82 Long term (current) use of aspirin; W18.30XA Fall on same level, unspecified, initial encounter
CPT/HCPCS: 36416; 70450; 71045; 72125; 74177; 80053; 80306; 80307; 81001; 82962; 83605; 84443; 84484; 85025; 85651; 86140; 93005; 96361; 96374; 99285; J1885; J7030; Q9967

== ENCOUNTER 2022-10-11 09:28 | Outpatient (RCR) | payer OTHER, SELFPAY | END 2022-11-01 23:59 | disposition home or self-care (01) | LOC: SPT 09:28 | PROVIDERS: Visit Provider Student in an Organized Health Care Education/Training Program | DX: M79.641 Pain in right hand (principal); M79.642 Pain in left hand; M25.531 Pain in right wrist; M25.532 Pain in left wrist | CPT/HCPCS: 97545 ==

== ENCOUNTER 2022-11-16 15:01 | Outpatient (CLI) | payer BC, SELFPAY ==
--- NOTE | 2022-11-16 15:19 | XR_ITS ---
WS: [id number] XR chest 3V [id number] REASON FOR EXAM: HEMOPTYSIS FINDINGS: The chest is unchanged compared to 08/24/2022. The heart and mediastinum are within normal limits with arterial stent at the origin of the right sub clavian artery. Calcified granulomatous disease bilaterally. The lungs are somewhat hyperexpanded with mild flattening of the hemidiaphragms. Mild expansion the a nterior clear space. No active pulmonary parenchymal or pleural disease is identified. No significant abnormality of the bony thorax. XR/XR chest 3V [id number] IMPRESSION: Stable chest with no acute abnormality. Mild pulmonary hyperexpansion.
== END 2022-11-16 15:02 | disposition home or self-care (01) ==
PROVIDERS: PCP Nurse Practitioner Family; Visit Provider Nurse Practitioner Family
DX: R04.2 Hemoptysis (principal)
CPT/HCPCS: 71047

== ENCOUNTER 2022-11-27 15:55 | Outpatient (CLI) | payer BC, MEDICAID, SELFPAY ==
--- NOTE | 2022-11-27 | USCV_ITS ---
Fabian Gagnon Age: 47 Gender: M : 1975 Exam Date: 11/27/2022 16:19 Ordering Phys: Tayla FranklinP Technologist: SÁNCHEZ [place] [facility] [place]ication: Subclavian stenosis. Hypotention. Risk Factors: Previous Vascular Surgery: Right Brachial BP: / Left Brachial BP: / Right Left Velocity (cm/s) Spectral Plaque Velocity (cm/s) Spectral Plaque Syst/Diast Broadening Syst/Diast Broadening 168.30/18.40 Prox CCA 167.20/ 30.00 141.00/20.90 Mid CCA 166.20/ 32.90 143.90/21.10 Distal CCA 150.50/ 34.50 142.10/27.00 Prox ICA 161.80/ 41.00 115.80/30.90 Mid ICA 142.10/ 41.40 120.30/32.10 Distal ICA 139.70/ 34.90 170.90 ECA 321.90 0.84 ICA/CCA 0.97 Antegrade Vertebral Antegrade 61.90/ 16.00 cm/s 80.30/ 20.30 cm/s Tri Subclavian Tri 118.0 138.8 0 0 FINDINGS Comparison:. 06/05/17. Velocities are elevated throughout the carotid arteries, bilateral. No stenosis. Antegrade vertebral arteries. No subclavian stenosis. Mild carotid atherosclerosis, bilateral. CONCLUSIONS Bilateral elevated carotid artery velocities. Can be seen with elevated cardiac output/ hypertension. Mild carotid atherosclerosis. Dr. Daniela Rock DO (Electronically Signed) Final Date: 28 November 2022 07:26 S
--- NOTE | 2022-11-27 16:12 | CT_ITS ---
WS: [id number] CT chest w con* [id number] HISTORY: HEMOPTYSIS TECHNIQUE: Axial imaging performed through the thorax. Coronal and sagittal reformats are submitted. All CT scans at [facility] use at least one of these dose optimization techniques: automated exposure control; mA and/or kV adjustment per patient size (includes targeted exams where dose is mat ched to clinical indication); or iterative reconstruction. CONTRAST: Omnipaque 350; 100 mL IV. DLP: 208.12 mGy.cm COMPARISON: Chest radiograph 11/27/2022 and 11/16/2022 Lungs and central airway: Mild pulmonary hyperinflation. Interstitial thickening within a tree-in-bud distribution in the RIGHT upper lobe. There is a central cystic wall but asymmetric cavity in the RI GHT upper lobe 15 x 14 mm. Dilated bronchial the RIGHT upper lobe with mixed density in the lumen. Th ere is bronchial wall thickening. Associated mediastinal and hilar lymphadenopathy. Pleura: Normal. No pleural effusion. Heart and pericardium: Normal size heart with no pericardial effusion. Mediastinum and malissa: Mediastinal and hilar lymphadenopathy. Enlarged low-attenuation necrotic lymph nodes are identified. There is a large confluent necrotic appearing lymph node centered at the RIGHT hilum measuring 3.0 x 3.8 cm. Cortical defect or wall thickening of the RIGHT hilar region with narro wing of the bronchus. There is an additional soft tissue mass in the RIGHT upper lobe centrally which may be in the bronchus also. Subcarinal lymph node group measures 5.5 x 3.0 cm. LEFT hilar adenopath y is less significant but there is prominent lymphoid tissue. RIGHT paratracheal lymph node measures 1.9 x 1.2 cm. Vessels: Mild atherosclerosis aorta. There is a LEFT subclavian graft identified. Mixed attenuation w ithin the LEFT subclavian artery. LEFT subclavian artery occlusion was also described on a prior reina ogram from 2018. Chest wall and lower neck: No soft tissue masses. Upper abdomen: Very mildly thickened LEFT adrenal gland. No mass. Visualized liver is negative for me tastatic disease. Osseous structures: No destructive bone lesions. CT/CT chest w con* [id number] IMPRESSION: 1. RIGHT upper lobe is abnormal. Tree-in-bud opacification with a central asym metric thick walled cavitation. Cavitation measures 15 x 14 mm. Medially positi oned RIGHT upper lobe soft tissue mass may be within the bronchial tree. This m ass measures 19 x 19 mm. 2. Mediastinal and hilar lymphadenopathy. Necrotic groups of lymph nodes great est at the RIGHT hilum where circumferential narrowing of the bronchial tree. L argest cluster of lymph nodes is subcarinal measuring 5.5 x 3.0 cm. Recommend b ronchoscopy. Neoplasm is likely. 3. No additional masses.
[2022-11-27] MEDS: iohexol 350 mg/mL 500 mL Btl (per mL) IV (16:52)
== END 2022-11-27 15:56 | disposition home or self-care (01) ==
PROVIDERS: PCP Nurse Practitioner Family; Visit Provider Nurse Practitioner Family
DX: R04.2 Hemoptysis (principal); I87.1 Compression of vein; R91.8 Other nonspecific abnormal finding of lung field; L04.8 Acute lymphadenitis of other sites; I65.23 Occlusion and stenosis of bilateral carotid arteries
CPT/HCPCS: 71260; 93880; Q9967

== ENCOUNTER 2022-11-27 16:54 | Emergency (ER) | payer BC, MEDICAID, SELFPAY ==
--- NOTE | 2022-11-27 16:55 | ECG_ITS ---
[facility] Test Date: 2022-11-27 Pat Name: Fabian Gagnon Department: Room: Gender: Male [employer]: : 1975 Requested By: Ras Velez Order Number: [id number] Craig MD: Rasheed Thomason M.D. Measurements Intervals Swan Rate: 99 P: 78 MO: 123 QRS: 84 QRSD: 82 T: 73 QT: 340 QTc: 436 Interpretive Statements SINUS RHYTHM Compared to ECG 08/25/2022 00:03:36 No significant changes Electronically Signed On 11-27-2022 17:22:38 CDT by Rasheed Thomason M.D. [email or web address] general [email or web address] st. mary hospitalAdways [id number]
--- NOTE | 2022-11-27 16:56 | XRR_ITS ---
PROCEDURE INFORMATION: Exam: XR Chest Exam date and time: 11/27/2022 5:00 PM Age: 47 years old Clinical indication: Cough with hemorrhage; Additional info: Dyspnea/cough TECHNIQUE: Imaging protocol: Radiologic exam of the chest. Views: 1 view. COMPARISON: CT chest w con* [id number] 11/27/2022 4:43 PM FINDINGS: Lungs: Prominent right hilar region likely reflects the presence of underlying adenopathy/mass as seen on recent chest CT from 11/27/2022. Emphysematous changes. Pleural spaces: Unremarkable. No pleural effusion. No pneumothorax. Heart/Mediastinum: Right paratracheal vascular stent and left upper paratracheal surgical clips. Bones/joints: Unremarkable. XR/XR chest 1V portable [id number] IMPRESSION: 1. Prominent right hilar region likely reflects the presence of underlying adenopathy/mass as seen on recent chest CT from 11/27/2022. 2. Emphysematous changes. 3. Right paratracheal vascular stent and left upper paratracheal surgical clips.
[2022-11-27 16:58] VITALS: BP 93/64; PULSE 102; RESP 22; TEMP 37; O2SAT 98; BMI 23.0
--- NOTE | 2022-11-27 17:17 | ED_ITS ---
Documented by User: Ras Gomez DO 11/28/22 05:51 HPI - SOB/Dyspnea General: Chief Complaint: Shortness of Breath/Dyspnea Stated Complaint: sob Time Seen by Provider: 11/27/22 16:55 Source: patient Mode of arrival: ambulatory History of Present Illness: HPI Narrative: 47-year-old male presents emergency room complaining of shortness of breath. Patient has a history of COPD from that this GRIPTION of what he has had a sounds like he may have had some pulmonary hypertension as well in part due to a chemical exposure injury several years ago. He has been having some hemoptysis for the last couple of weeks he is seen by primary care provider and scheduled for a CT of his chest which was done earlier today has not been read yet. He is not on any anticoagulants. He tells me he has had some stents placed but he talks about them being on the right side of his heart and then another through his neck placed on the left side of his heart. MD elicited complaint: shortness of breath and cough Pertinent past history: COPD Onset (ago): minute(s) Context: other Timing: intermittent Severity: moderate Exacerbating factors: coughing Relieving factors: nothing Known history of: COPD Associated symptoms: Reports cough and hemoptysis; Deny abdominal pain, chest congestion, chest pain, diaphoresis, dizziness, extremity pain, fever(s), lightheadedness, myalgias, nausea, orthopnea, pa lpitations, paresthesias, polydipsia, polyuria, rash, sense of impending doom, syncope or vomiting Review of Systems Const: Reports: fatigue; Denies: fever(s), chills or diaphoresis ENMT: Denies: throat pain, ear or mastoid pain, nasal discharge or nasal congestion Card: Denies: chest pain, palpitations, lightheadedness, syncope or orthopnea Resp: Reports: dyspnea, productive cough and hemoptysis; Denies: chest congestion GI: Denies: abdominal pain, nausea or vomiting : Denies: flank pain, dysuria, urinary frequency or urinary urgency Musc: Denies: extremity pain Skin/Breast: Denies: rash or pruritus Neuro: Denies: dizziness Endo: Denies: polyuria or polydipsia PFS ED PFSH: Medical History No pertinent family history Surgical History No pertinent past surgical history Social History Smoking and tobacco status: current every day smoker Physical Exam Const: COMMON NORMALS: no acute distress GENERAL APPEARANCE: cooperative and comfortable ORIENTATION/CONSCIOUSNESS: Yes awake, Yes oriented to person, Yes oriented to place and Yes oriented to time HENMT: COMMON NORMALS: normocephalic, atraumatic and hearing grossly normal bilaterally HEAD & SCALP: normocephalic and atraumatic Resp: COMMON NORMALS: normal respiratory effort, No retractions and No use of accessory muscles AUSCULTATION: wheezes Cardio: COMMON NORMALS: regular rate, regular rhythm and No murmurs present (Cardio) RATE: regular rate RHYTHM: regular rhythm GI: COMMON NORMALS: Soft to palpation and No hepatosplenomegaly present AUSCULTATION: Yes normoactive bowel sounds PALPATION: Yes Soft to palpation, No Tenderness to palpation present (GI), No Guarding due to palpation present (GI) and Yes No hepatosplenomegaly present Extremity: COMMON NORMALS: normal to inspection, capillary refill normal, no clubbing, cyanosis or edema, no calf tenderness and no pedal edema Neuro: SENSORIUM/ORIENTATION: Yes oriented to person, Yes oriented to place and Yes oriented to time Skin: COMMON NORMALS: no rashes or lesions noted GENERAL SKIN EXAM: no rashes or lesions noted Course Vital Signs: Vital signs: Vital Signs Temperature 98.6 F 11/27/22 16:58 Pulse Rate 95 11/27/22 20:08 Respiratory Rate 18 11/27/22 20:08 Blood Pressure 103/72 11/27/22 20:08 Pulse Oximetry 96 11/27/22 20:08 Oxygen Delivery Me thod Room Air 11/27/22 19:27 MDM - SOB/Dyspnea Medical Decision Making Care signed out to Dr. Andres at change of shift. See final notes for diagnosis and disposition. Lab Data 11/27/22 17:29 11/27/22 17:29 Labs/Radiology: Radiology Impressions Chest X-Ray 11/27/22 16:56 IMPRESSION: 1. Prominent right hilar region likely reflects the presence of underlying adenopathy/mass as seen on recent chest CT from 11/27/2022. 2. Emphysematous changes. 3. Right paratracheal vascular stent and left upper paratracheal surgical clips. Laboratory Results WBC 11.2 10^3/uL (4.0-10.0) H 11/27/22 17: RBC 3.47 10^6/uL (4.1-5.3) L 11/27/22 17: Hgb 10.4 g/dL (11.7-16.6) L 11/27/22 17: Hct 31.3 % (42.0-52.0) L 11/27/22 17: MCV 90.2 fl (80-94) 11/27/22 17: MCH 30.0 pg (28.0-34.0) 11/27/22: MCHC 33.2 g/dL (30.0-36.0) 11/27/22: RDW 12.1 % (12.1-15.1) 11/27/22: Plt Count 359 10^3/cmm (130-400) 11/27/22 17: MPV 9.1 fL (7.4-10.4) 11/27/22: Neut % (Auto) 61.3 % 11/27/22: Lymph % (Auto) 25.8 % 11/27/22 17: Chaves % (Auto) 10.4 % 11/27/22: Eos % (Auto) 1.7 % 11/27/22: Baso % (Auto) 0.6 % 11/27/22: Neut # (Auto) 6.88 10^3/uL (1.8-7.7) 11/27/22 17: Lymph # (Auto) 2.9 10^3/uL (0.8-4.8) 11/27/22: Chaves # (Auto) 1.2 10^3/uL (0.2-0.9) H 11/27/22: Eos # (Auto) 0.2 10^3/uL (0.0-0.8) 11/27/22: Baso # (Auto) 0.1 10^3/uL (0.0-0.1) 11/27/22 17: Nucleated RBC % (auto) 0 % 11/27/22 17: Nucleated RBCs # 0.0 /100WBC 11/27/22 17: Sodium 135 mmol/L (136-145) L 11/27/22 17: Potassium 3.7 mmol/L (3.5-5.1) 11/27/22: Chloride 99 mmol/L (98-107) 11/27/22: Carbon Dioxide 23 mmol/L (22-29) 11/27/22: Anion Gap 16.7 (5-19) 11/27/22: BUN 10 mg/dL (6-20) 11/27/22: Creatinine 0.7 mg/dL (0.7-1.2) 11/27/22: GFR Calculation 120.9 mL/min (90-130) 11/27/22: Glucose 82 mg/dL (65-115) 11/27/22: Calculated Osmolality 278 mOsm/kg (285-295) L 11/27/22: Calcium 8.2 mg/dL (8.5-10.5) L 11/27/22: Total Bilirubin 0.2 mg/dL (0.15-1.2) 11/27/22: AST 18 U/L (0-40) 11/27/22: ALT 14 U/L (0-41) 11/27/22: Alkaline Phosphatase 40 U/L (40-130) 11/27/22: Total Protein 6.7 g/dL (6.6-8.7) 11/27/22: Albumin 3.3 g/dL (3.5-5.2) L 11/27/22: Globulin 3.4 g/dL (1.3-4.6) 11/27/22 17: Discharge Plan Discharge Patient Disposition: Home Clinical Impression: Acute exacerbation of chronic obstructive airways disease, Mass of right lung Condition: Stable Prescriptions: New prednisone 50 mg tablet 50 mg PO DAILY 5 Days Qty: 5 0RF albuterol sulfate 90 mcg/actuation HFA aerosol inhaler 2 inh inhalation Q4H PRN (Reason: shortness of breath or wheezing) Qty: 8.5 0RF amoxicillin-pot clavulanate 875-125 mg tablet 1 tab PO BID Qty: 20 0RF benzonatate 100 mg capsule 100 mg PO Q6H PRN (Reason: cough) Qty: 30 0RF No Action (DME) Thumb Spika Splint See Rx Instructions .Route .MEDSUPPLY Qty: 2 0RF Rx Instructions: As directed hydrocodone-acetaminophen 5-325 mg tablet 1 tab PO Q6H PRN (Reason: pain) 7 Days Qty: 30 0RF tramadol 50 mg tablet 50 mg PO TID PRN (Reason: pain) Qty: 21 0RF clopidogrel 75 mg tablet 75 mg PO DAILY Rx Instructions: external med history has rx last filled on 09/04/2019 30d/s-pt states he only takes when he thinks he needs Aspir-81 81 mg Tablet,Delayed Release (Dr/Ec) 81 mg PO DAILY Rx Instructions: pt states he takes this everyday Discharge Orders: Discharge ED (Routine); Ordered 11/27/22 Ordered By: Siva Andres Referrals: Tayla Franklin FNP [Primary Care Provider] - Discharge Diet: Usual diet Discharge Activity: Resume usual activity Patient Instructions: COPD (Chronic Obstructive Pulmonary Disease) (ED), Coughing Up Blood (Hemoptysis) (ED) Activity Restrictions/Additional Instructions: Thank you for visiting the emergency department. You were seen and evaluated for shortness of breath and hemoptysis. The exact cause of your symptoms is likely multifactorial. You do have underlying lung disease which puts you at risk for atypical infection and exacerbation. I will prescribe steroids and antibiotics. Please also use your albuterol metered-dose inhaler 2 puffs every 4 hours for 24 hours followed by 2 puffs every 6 hours for 24 hours followed by 2 puffs every 8 hours for 24 hours and then return to the normal schedule. I will also prescribe cough drops. As discussed the formal interpretation is pending on your chest CT however I am quite worried on my review for possibility of lung cancer. I will message case management for follow-up with pulmonology. Please also follow-up with your primary care provider. Return for anything that you are concerned about and feel needs emergency department evaluation. Sign Out Sign Out Data: Patient Sign Out occurred on 11/27/22 at 18:29. Patient's care was discussed, and care was transferred from to Siva Andres MD. Coding Level of Care Code ED Technical Solution Architect for [employer] Documented by User: Siva Andres MD 11/29/22 04:37 HPI - SOB/Dyspnea General: Chief Complaint: Shortness of Breath/Dyspnea Stated Complaint: sob Time Seen by Provider: 11/27/22 16:55 PFSH ED PFSH: Medical History No pertinent family history Surgical History No pertinent past surgical history Social History Smoking and tobacco status: current every day smoker Course Vital Signs: Vital signs: Vital Signs Temperature 98.6 F 11/27/22 16:58 Pulse Rate 95 11/27/22 20:08 Respiratory Rate 18 11/27/22 20:08 Blood Pressure 103/72 11/27/22 20:08 Pulse Oximetry 96 11/27/22 20:08 Oxygen Delivery Me thod Room Air 11/27/22 19:27 MDM - SOB/Dyspnea Medical Decision Making Care signed out to Dr. Andres at change of shift. See final notes for diagnosis and disposition. Patient care handoff received from Dr. Gomez pending completion of ED evaluation. I personally saw and evaluated the patient and reperformed james portions of E/M. I reviewed laboratory studies and imaging. Unfortunate situation, the formal read for chest CT is pending however upon my review patient has significant abnormalities quite concerning for malignancy. There does appear to be possible mild pneumonia less appreciated on chest x-ray however CT was performed same day. Patient treated with Tessalon Perles and IV fluids and feels mildly improved. He does have likely underlying lung disease secondary to smoking which resulted in exacerbation. He will be treated for COPD exacerbation/pneumonia. I discussed the likely CT results including concern for cancer and need for follow-up. I will message case management for pulmonology follow-up. I discussed prescriptions and/or symptomatic cares (if applicable) including appropriate and responsible use, followup plan, and return precautions. The patient verbalized understanding and felt safe for discharge. Siva Andres MD Emergency Medicine Lab Data 11/27/22 17:29 11/27/22 17:29 Labs/Radiology: Radiology Impressions Chest X-Ray 11/27/22 16:56 IMPRESSION: 1. Prominent right hilar region likely reflects the presence of underlying adenopathy/mass as seen on recent chest CT from 11/27/2022. 2. Emphysematous changes. 3. Right paratracheal vascular stent and left upper paratracheal surgical clips. Laboratory Results WBC 11.2 10^3/uL (4.0-10.0) H 11/27/22 17: RBC 3.47 10^6/uL (4.1-5.3) L 11/27/22 17: Hgb 10.4 g/dL (11.7-16.6) L 11/27/22 17: Hct 31.3 % (42.0-52.0) L 11/27/22 17: MCV 90.2 fl (80-94) 11/27/22 17: MCH 30.0 pg (28.0-34.0) 11/27/22 17: MCHC 33.2 g/dL (30.0-36.0) 11/27/22 17: RDW 12.1 % (12.1-15.1) 11/27/22 17: Plt Count 359 10^3/cmm (130-400) 11/27/22 17: MPV 9.1 fL (7.4-10.4) 11/27/22 17: Neut % (Auto) 61.3 % 11/27/22 17: Lymph % (Auto) 25.8 % 11/27/22 17: Chaves % (Auto) 10.4 % 11/27/22 17: Eos % (Auto) 1.7 % 11/27/22 17: Baso % (Auto) 0.6 % 11/27/22 17: Neut # (Auto) 6.88 10^3/uL (1.8-7.7) 11/27/22 17: Lymph # (Auto) 2.9 10^3/uL (0.8-4.8) 11/27/22 17: Chaves # (Auto) 1.2 10^3/uL (0.2-0.9) H 11/27/22 17:29 Eos # (Auto) 0.2 10^3/uL (0.0-0.8) 11/27/22 17: Baso # (Auto) 0.1 10^3/uL (0.0-0.1) 11/27/22 17: Nucleated RBC % (auto) 0 % 11/27/22: Nucleated RBCs # 0.0 /100WBC 11/27/22 17: Sodium 135 mmol/L (136-145) L 11/27/22 17: Potassium 3.7 mmol/L (3.5-5.1) 11/27/22: Chloride 99 mmol/L (98-107) 11/27/22 17: Carbon Dioxide 23 mmol/L (22-29) 11/27/22 17: Anion Gap 16.7 (5-19) 11/27/22 17: BUN 10 mg/dL (6-20) 11/27/22 17: Creatinine 0.7 mg/dL (0.7-1.2) 11/27/22 17: GFR Calculation 120.9 mL/min (90-130) 11/27/22 17: Glucose 82 mg/dL (65-115) 11/27/22 17: Calculated Osmolality 278 mOsm/kg (285-295) L 11/27/22 17: Calcium 8.2 mg/dL (8.5-10.5) L 11/27/22 17: Total Bilirubin 0.2 mg/dL (0.15-1.2) 11/27/22 17: AST 18 U/L (0-40) 11/27/22 17: ALT 14 U/L (0-41) 11/27/22 17: Alkaline Phosphatase 40 U/L (40-130) 11/27/22 17: Total Protein 6.7 g/dL (6.6-8.7) 11/27/22 17:29 Albumin 3.3 g/dL (3.5-5.2) L 11/27/22 17:29 Globulin 3.4 g/dL (1.3-4.6) 11/27/22 17:29 Discharge Plan Discharge Patient Disposition: Home Clinical Impression: Acute exacerbation of chronic obstructive airways disease, Mass of right lung Condition: Stable Prescriptions: New prednisone 50 mg tablet 50 mg PO DAILY 5 Days Qty: 5 0RF albuterol sulfate 90 mcg/actuation HFA aerosol inhaler 2 inh inhalation Q4H PRN (Reason: shortness of breath or wheezing) Qty: 8.5 0RF amoxicillin-pot clavulanate 875-125 mg tablet 1 tab PO BID Qty: 20 0RF benzonatate 100 mg capsule 100 mg PO Q6H PRN (Reason: cough) Qty: 30 0RF No Action (DME) Thumb Spika Splint See Rx Instructions .Route .MEDSUPPLY Qty: 2 0RF Rx Instructions: As directed hydrocodone-acetaminophen 5-325 mg tablet 1 tab PO Q6H PRN (Reason: pain) 7 Days Qty: 30 0RF tramadol 50 mg tablet 50 mg PO TID PRN (Reason: pain) Qty: 21 0RF clopidogrel 75 mg tablet 75 mg PO DAILY Rx Instructions: external med history has rx last filled on 09/04/2019 30d/s-pt states he only takes when he thinks he needs Aspir-81 81 mg Tablet,Delayed Release (Dr/Ec) 81 mg PO DAILY Rx Instructions: pt states he takes this everyday Discharge Orders: Discharge ED (Routine); Ordered 11/27/22 Ordered By: Siva Andres Referrals: Tayla Franklin FNP [Primary Care Provider] - Discharge Diet: Usual diet Discharge Activity: Resume usual activity Patient Instructions: COPD (Chronic Obstructive Pulmonary Disease) (ED), Coughing Up Blood (Hemoptysis) (ED) Activity Restrictions/Additional Instructions: Thank you for visiting the emergency department. You were seen and evaluated for shortness of breath and hemoptysis. The exact cause of your symptoms is likely multifactorial. You do have underlying lung disease which puts you at risk for atypical infection and exacerbation. I will prescribe steroids and antibiotics. Please also use your albuterol metered-dose inhaler 2 puffs every 4 hours for 24 hours followed by 2 puffs every 6 hours for 24 hours followed by 2 puffs every 8 hours for 24 hours and then return to the normal schedule. I will also prescribe cough drops. As discussed the formal interpretation is pending on your chest CT however I am quite worried on my review for possibility of lung cancer. I will message case management for follow-up with pulmonology. Please also follow-up with your primary care provider. Return for anything that you are concerned about and feel needs emergency department evaluation. Sign Out Sign Out Data: Patient Sign Out occurred on 11/27/22 at 18:29. Patient's care was discussed, and care was transferred from to Siva Andres MD. Coding Level of Care Code ED Technical Solution Architect for Uzair Cooper
[2022-11-27 17:57] LABS: Basophils # 0.1 10^3/uL (0.0-0.1); Basophils % 0.6 %; Eosinophils # 0.2 10^3/uL (0.0-0.8); Eosinophils % 1.7 %; Hematocrit 31.3 % (42.0-52.0); Hemoglobin 10.4 g/dL (11.7-16.6); Lymphocytes # 2.9 10^3/uL (0.8-4.8); Lymphocytes % 25.8 %; Mean Corpuscular HGB Conc 33.2 g/dL (30.0-36.0); Mean Corpuscular Volume 90.2 fl (80-94); Mean Platelet Volume 9.1 fL (7.4-10.4); Monocytes # 1.2 10^3/uL (0.2-0.9); Monocytes % 10.4 %; Neutrophils # 6.88 10^3/uL (1.8-7.7); Neutrophils % 61.3 %; Nucleated Red Blood Cells % 0 %; Platelet Count 359 10^3/cmm (130-400); Red Blood Count 3.47 10^6/uL (4.1-5.3); Red Cell Distribution Width 12.1 % (12.1-15.1); White Blood Count 11.2 10^3/uL (4.0-10.0)
[2022-11-27 18:21] LABS: Alanine Aminotransferase 14 U/L (0-41); Albumin Level 3.3 g/dL (3.5-5.2); Alkaline Phosphatase 40 U/L (40-130); Aspartate Amino Transferase 18 U/L (0-40); Blood Urea Nitrogen 10 mg/dL (6-20); Calcium 8.2 mg/dL (8.5-10.5); Carbon Dioxide 23 mmol/L (22-29); Chloride 99 mmol/L (98-107); Globulin 3.4 g/dL (1.3-4.6); Glomerular Filtration Rate 120.9 mL/min (90-130); Glucose 82 mg/dL (65-115); Osmolality Calculated 278 mOsm/kg (285-295); Sodium 135 mmol/L (136-145); Total Bilirubin 0.2 mg/dL (0.15-1.2); Total Protein 6.7 g/dL (6.6-8.7)
[2022-11-27 18:24] LABS: Anion Gap 16.7 (5-19); Potassium 3.7 mmol/L (3.5-5.1)
[2022-11-27] MEDS: benzonatate 100 mg Capsule PO (18:48)
[2022-11-27] MEDS: sodium chloride 0.9% 500 ML 999 ML IV (18:49)
--- NOTE | 2022-11-27 19:02 | PC.NURSE ---
Report taken from Aidan at this time.
[2022-11-27] MEDS: albuterol 8 gm MDI 2 PUFF INHALATION (19:26)
[2022-11-27 19:27] VITALS: PULSE 84; RESP 18; O2SAT 95
[2022-11-27] MEDS: predniSONE 20 mg Tablet 40 MG PO (20:04)
[2022-11-27] MEDS: amoxicillin-clav 875-125 mg Tablet 1 TAB PO (20:04)
[2022-11-27 20:08] VITALS: BP 103/72; PULSE 95; RESP 18; O2SAT 96
--- NOTE | 2022-11-28 10:57 | PC.SOCIAL ---
Addendum entered by Queta Cervantes 12/08/22 14:55: Patent had a follow up appointment scheduled with pulmonology - patient did attend appointment. Original Note: Pulmonology Referral Referral sent to pulmonology at this time. Clinic to contact patient with appt date/time.
== END 2022-11-27 20:22 | disposition home or self-care (01) ==
PROVIDERS: Family Medicine; Emergency Provider Emergency Medicine; PCP Nurse Practitioner Family
DX: J44.1 Chronic obstructive pulmonary disease with (acute) exacerbation (principal); R91.8 Other nonspecific abnormal finding of lung field; Z79.82 Long term (current) use of aspirin; Z79.02 Long term (current) use of antithrombotics/antiplatelets; F17.210 Nicotine dependence, cigarettes, uncomplicated
CPT/HCPCS: 71045; 80053; 85025; 93005; 94640; 99285; J3535; J7040; J7512

== ENCOUNTER 2022-12-07 09:56 | Emergency (ER) | payer BC, MEDICAID, SELFPAY ==
[2022-12-07 10:12] VITALS: BP 86/63; PULSE 88; RESP 18; TEMP 36.7; O2SAT 99; BMI 18.1
--- NOTE | 2022-12-07 10:23 | USR_ITS ---
PROCEDURE INFORMATION: Exam: US Duplex Right Lower Extremity Arteries Or Arterial Bypass Grafts Exam date and time: 12/07/2022 11:05 AM Age: 47 years old Clinical indication: Pain; Leg, lower; Right; Additional info: Pain rle with temp change and some discoloration R great toe TECHNIQUE: Imaging protocol: Right Real-time duplex scan of the arteries or arterial bypass grafts of the right lower extremity with 2-D koehler scale, color Doppler flow and spectral waveform analysis. Images documented and saved. COMPARISON: CT abdomen pelvis w con* [id number] 08/25/2022 2:31 AM FINDINGS: Monophasic waveforms are noted diffusely suggesting possible inflow disease. The only identifiable occluded vessel is the posterior tibial artery. There is only trace flow in the peroneal artery. The anterior tibial artery was either not imaged or is occluded. There is flow in the dorsalis pedis artery probably via collaterals. The PSV measurements range from a high of 73 cm/sec in the proximal right iliac artery to 43 cm/sec in the dorsalis pedis artery. The ankle brachial index is 0.5. This indicates rather severe arterial disease US/[place] [id number] IMPRESSION: Abnormal findings as described above. Consider further evaluation with angiography, CTA, or MRA.
--- NOTE | 2022-12-07 10:35 | W.ED.EXTPRO ---
Documented by User: JADEN Braden 12/07/22 14:37 HPI - Extremity Problem General: Chief complaint: Extremity Injury, Lower Stated complaint: sent by Zoya/nikolas frausot rt foot turning purple/pain Time Seen by Provider: 12/07/22 10:12 History of Present Illness: Patient is in today for complaints of discoloration of his right great toe. Patient states that he has been having a lot of medical issues lately. He reports that he recently had an ultrasound of both of his carotid arteries and he has had stents placed in his carotid arteries in the past. He states that he is also scheduled to have a PET scan for abnormalities noted on his lung CT recently. The patient states that this morning he noticed some pain on his inner right lower leg from about mid lower leg down to the great toe. He reports that there is a vessel that he can touch that is very hard and firm. He reports that his great toe was turning purple and blue. He states that he called his primary about scheduling issues for his PET scan and also told her about the toe turning blue. His primary directed him to the ER thinking that he could have a blood clot. Associated symptoms: Deny chest pain or fever(s) Review of Systems Const: Denies: fever(s) or chills Card: Denies: chest pain or palpitations Resp: Reports: dyspnea (Reports he has had some baseline shortness of breath but no new symptoms) Neuro: Denies: headache(s) or numbness in extremities [facility] ED PFSH: Medical History No pertinent family history Surgical History No pertinent past surgical history Family History Family/Other Cancer Father CAD (coronary artery disease) Social History Smoking and tobacco status: current every day smoker Physical Exam Const: COMMON NORMALS: no acute distress, patient oriented x3 and alert Resp: COMMON NORMALS: normal respiratory effort, No use of accessory muscles and clear to auscultation bilaterally AUSCULTATION: clear to auscultation bilaterally Cardio: COMMON NORMALS: regular rate, regular rhythm and Peripheral pulses 2+ throughout (Peripheral pulse weaker right side dorsalis pedis) RATE: regular rate RHYTHM: regular rhythm PERIPHERAL PULSES: Peripheral pulses 2+ throughout (Peripheral pulse weaker right side dorsalis pedis) OTHER: Patient has tenderness along the medial right calf, popliteal region, posterior right calf. He has prominent vessel noted medial right leg. Pedal pulses slightly weaker on the right foot than the left. There is a faint bluish tent to the right great toe and it is slightly cooler than all other toes. Neuro: COMMON NORMALS: patient oriented x3 SENSORIUM/ORIENTATION: Yes alert Course Vital Signs: Vital signs: Vital Signs Temperature 98.1 F 12/07/22 10:12 Pulse Rate 81 12/07/22 12:48 Respiratory Rate 19 H 12/07/22 12:48 Blood Pressure 89/72 12/07/22 12:48 Pulse Oximetry 98 12/07/22 12:48 Oxygen Delivery Me thod Room Air 12/07/22 10:12 MDM - Extremity (Nontraumatic) Medical Decision Making Consider arterial occlusion, intermittent claudication, DVT Arterial duplex abnormal with LYNN of 0.5. Occlusion noted to the posterior tibialis and only trace flow through the peroneal artery. I consulted with Dr. Staton, ER physician. She agrees with discussing case with Dr. Purvis for intervention. I called and discussed the case with Dr. Purvis who advised that, in a subacute case such as this, the patient would be best served to be transferred to higher level of care. Paged [facility] to discuss transfer. 1400?spoke with Dr. Ramsay at [facility] who agreed to have patient transferred ER to ER. Dr. Ramsay said that if the ER would admit the patient he would be happy to see the patient and do procedure tomorrow. Spoke with Dr. Galvan, [facility] ER, who agrees to accept patient in transfer. Shemar: I saw this patient with JADEN Braden. The patient has clinical symptoms concerning for limb ischemia - and a history of vascular disease. He was sent in by his PCP for evaluation. US does show monophasic flow and distal occlusions. On my exam his skin color had improved, but he still had some tenderness on the medial foot and medial lower leg. Pulse intact in the DP. Discussed with Dr. Purvis who recommended transfer. Patient's vascular surgeon is at [facility] and we are working on setting up a transfer there. I have started a heparin drip. The patient had been on plavix in the past, but currently is on a full dose aspirin only. Lab Data 12/07/22 10:42 12/07/22 10:42 Radiology Impressions Duplex Scan Lower Extremity Artery 12/07/22 10:23 IMPRESSION: Abnormal findings as described above. Consider further evaluation with angiography, CTA, or MRA. Laboratory Results WBC 10.8 10^3/uL (4.0-10.0) H 12/07/22 10:42 RBC 4.04 10^6/uL (4.1-5.3) L 12/07/22 10:42 Hgb 11.8 g/dL (11.7-16.6) 12/07/22 10:42 Hct 36.1 % (42.0-52.0) L 12/07/22 10:42 MCV 89.4 fl (80-94) 12/07/22 10:42 MCH 29.2 pg (28.0-34.0) 12/07/22 10:42 MCHC 32.7 g/dL (30.0-36.0) 12/07/22 10:42 RDW 12.6 % (12.1-15.1) 12/07/22 10:42 Plt Count 313 10^3/cmm (130-400) 12/07/22 10:42 MPV 8.7 fL (7.4-10.4) 12/07/22 10:42 Neut % (Auto) 65.9 % 12/07/22 10:42 Lymph % (Auto) 22.2 % 12/07/22 10:42 [place] % (Auto) 9.0 % 12/07/22 10:42 Eos % (Auto) 1.9 % 12/07/22 10:42 Baso % (Auto) 0.4 % 12/07/22 10:42 Neut # (Auto) 7.12 10^3/uL (1.8-7.7) 12/07/22 10:42 Lymph # (Auto) 2.4 10^3/uL (0.8-4.8) 12/07/22 10:42 [place] # (Auto) 1.0 10^3/uL (0.2-0.9) H 12/07/22 10:42 Eos # (Auto) 0.2 10^3/uL (0.0-0.8) 12/07/22 10:42 Baso # (Auto) 0.0 10^3/uL (0.0-0.1) 12/07/22 10:42 Nucleated RBC % (auto) 0 % 12/07/22 10:42 Nucleated RBCs # 0.0 /100WBC 12/07/22 10:42 PT 13.90 SECONDS (12.1-14.9) 12/07/22 10:42 INR 1.04 (0.8-1.2) 12/07/22 10:42 APTT 36.0 SECONDS (23.9-36.7) 12/07/22 10:42 Sodium 137 mmol/L (136-145) 12/07/22 10:42 Potassium 4.5 mmol/L (3.5-5.1) 12/07/22 10:42 Chloride 100 mmol/L (98-107) 12/07/22 10:42 Carbon Dioxide 27 mmol/L (22-29) 12/07/22 10:42 Anion Gap 14.5 (5-19) 12/07/22 10:42 BUN 9 mg/dL (6-20) 12/07/22 10:42 Creatinine 0.7 mg/dL (0.7-1.2) 12/07/22 10:42 GFR Calculation 120.9 mL/min (90-130) 12/07/22 10:42 Glucose 92 mg/dL (65-115) 12/07/22 10:42 Calculated Osmolality 282 mOsm/kg (285-295) L 12/07/22 10:42 Lactic Acid 0.8 mmol/L (0.5-2.2) 12/07/22 10:42 Calcium 9.2 mg/dL (8.5-10.5) 12/07/22 10:42 Total Bilirubin 0.4 mg/dL (0.15-1.2) 12/07/22 10:42 AST 13 U/L (0-40) 12/07/22 10:42 ALT 14 U/L (0-41) 12/07/22 10:42 Alkaline Phosphatase 52 U/L (40-130) 12/07/22 10:42 Creatine Kinase 43 U/L (39-308) 12/07/22 10:42 Total Protein 7.1 g/dL (6.6-8.7) 12/07/22 10:42 Albumin 3.5 g/dL (3.5-5.2) 12/07/22 10:42 Globulin 3.6 g/dL (1.3-4.6) 12/07/22 10:42 Discharge Plan Discharge Condition: Stable Prescriptions: No Action Spiriva Respimat 1.25 mcg/actuation mist 2 puff inhalation DAILY Qty: 4 6RF (DME) Thumb Spika Splint See Rx Instructions .Route .MEDSUPPLY Qty: 2 0RF Rx Instructions: As directed hydrocodone-acetaminophen 5-325 mg tablet 1 tab PO Q6H PRN (Reason: pain) 7 Days Qty: 30 0RF tramadol 50 mg tablet 50 mg PO TID PRN (Reason: pain) Qty: 21 0RF clopidogrel 75 mg tablet 75 mg PO DAILY Rx Instructions: external med history has rx last filled on 09/04/2019 30d/s-pt states he only takes when he thinks he needs Aspir-81 81 mg Tablet,Delayed Release (Dr/Ec) 81 mg PO DAILY Rx Instructions: pt states he takes this everyday albuterol sulfate 90 mcg/actuation HFA aerosol inhaler 2 inh inhalation Q4H PRN (Reason: shortness of breath or wheezing) Qty: 8.5 0RF amoxicillin-pot clavulanate 875-125 mg tablet 1 tab PO BID Qty: 20 0RF benzonatate 100 mg capsule 100 mg PO Q6H PRN (Reason: cough) Qty: 30 0RF Referrals: Tayla Franklin FNP [Primary Care Provider] - Coding Level of Care Code ED Visual Merchandising Specialist for Chg Fwd Documented by User: Erica Staton MD 12/07/22 13:08 HPI - Extremity Problem General: Chief complaint: Extremity Injury, Lower Stated complaint: sent by Zoya/big jett rt foot turning purple/pain Time Seen by Provider: 12/07/22 10:12 [facility] ED PFSH: Medical History No pertinent family history Surgical History No pertinent past surgical history Family History Family/Other Cancer Father CAD (coronary artery disease) Social History Smoking and tobacco status: current every day smoker Course Vital Signs: Vital signs: Vital Signs Temperature 98.1 F 12/07/22 10:12 Pulse Rate 81 12/07/22 12:48 Respiratory Rate 19 H 12/07/22 12:48 Blood Pressure 89/72 12/07/22 12:48 Pulse Oximetry 98 12/07/22 12:48 Oxygen Delivery Me thod Room Air 12/07/22 10:12 MDM - Extremity (Nontraumatic) Medical Decision Making Consider arterial occlusion, intermittent claudication, DVT Arterial duplex abnormal with LYNN of 0.5. Occlusion noted to the posterior tibialis and only trace flow through the peroneal artery. I consulted with Dr. Staton, ER physician. She agrees with discussing case with Dr. Purvis for intervention. I called and discussed the case with Dr. Purvis who advised that, in a subacute case such as this, the patient would be best served to be transferred to higher level of care. Paged [facility] to discuss transfer. Shemar: I saw this patient with JADEN Braden. The patient has clinical symptoms concerning for limb ischemia - and a history of vascular disease. He was sent in by his PCP for evaluation. US does show monophasic flow and distal occlusions. On my exam his skin color had improved, but he still had some tenderness on the medial foot and medial lower leg. Pulse intact in the DP. Discussed with Dr. Purvis who recommended transfer. Patient's vascular surgeon is at [facility] and we are working on setting up a transfer there. I have started a heparin drip. The patient had been on plavix in the past, but currently is on a full dose aspirin only. Lab Data 12/07/22 10:42 12/07/22 10:42 Radiology Impressions Duplex Scan Lower Extremity Artery 12/07/22 10:23 IMPRESSION: Abnormal findings as described above. Consider further evaluation with angiography, CTA, or MRA. Laboratory Results WBC 10.8 10^3/uL (4.0-10.0) H 12/07/22 10:42 RBC 4.04 10^6/uL (4.1-5.3) L 12/07/22 10:42 Hgb 11.8 g/dL (11.7-16.6) 12/07/22 10:42 Hct 36.1 % (42.0-52.0) L 12/07/22 10:42 MCV 89.4 fl (80-94) 12/07/22 10:42 MCH 29.2 pg (28.0-34.0) 12/07/22 10:42 MCHC 32.7 g/dL (30.0-36.0) 12/07/22 10:42 RDW 12.6 % (12.1-15.1) 12/07/22 10:42 Plt Count 313 10^3/cmm (130-400) 12/07/22 10:42 MPV 8.7 fL (7.4-10.4) 12/07/22 10:42 Neut % (Auto) 65.9 % 12/07/22 10:42 Lymph % (Auto) 22.2 % 12/07/22 10:42 [place] % (Auto) 9.0 % 12/07/22 10:42 Eos % (Auto) 1.9 % 12/07/22 10:42 Baso % (Auto) 0.4 % 12/07/22 10:42 Neut # (Auto) 7.12 10^3/uL (1.8-7.7) 12/07/22 10:42 Lymph # (Auto) 2.4 10^3/uL (0.8-4.8) 12/07/22 10:42 [place] # (Auto) 1.0 10^3/uL (0.2-0.9) H 12/07/22 10:42 Eos # (Auto) 0.2 10^3/uL (0.0-0.8) 12/07/22 10:42 Baso # (Auto) 0.0 10^3/uL (0.0-0.1) 12/07/22 10:42 Nucleated RBC % (auto) 0 % 12/07/22 10:42 Nucleated RBCs # 0.0 /100WBC 12/07/22 10:42 PT 13.90 SECONDS (12.1-14.9) 12/07/22 10:42 INR 1.04 (0.8-1.2) 12/07/22 10:42 APTT 36.0 SECONDS (23.9-36.7) 12/07/22 10:42 Sodium 137 mmol/L (136-145) 12/07/22 10:42 Potassium 4.5 mmol/L (3.5-5.1) 12/07/22 10:42 Chloride 100 mmol/L (98-107) 12/07/22 10:42 Carbon Dioxide 27 mmol/L (22-29) 12/07/22 10:42 Anion Gap 14.5 (5-19) 12/07/22 10:42 BUN 9 mg/dL (6-20) 12/07/22 10:42 Creatinine 0.7 mg/dL (0.7-1.2) 12/07/22 10:42 GFR Calculation 120.9 mL/min (90-130) 12/07/22 10:42 Glucose 92 mg/dL (65-115) 12/07/22 10:42 Calculated Osmolality 282 mOsm/kg (285-295) L 12/07/22 10:42 Lactic Acid 0.8 mmol/L (0.5-2.2) 12/07/22 10:42 Calcium 9.2 mg/dL (8.5-10.5) 12/07/22 10:42 Total Bilirubin 0.4 mg/dL (0.15-1.2) 12/07/22 10:42 AST 13 U/L (0-40) 12/07/22 10:42 ALT 14 U/L (0-41) 12/07/22 10:42 Alkaline Phosphatase 52 U/L (40-130) 12/07/22 10:42 Creatine Kinase 43 U/L (39-308) 12/07/22 10:42 Total Protein 7.1 g/dL (6.6-8.7) 12/07/22 10:42 Albumin 3.5 g/dL (3.5-5.2) 12/07/22 10:42 Globulin 3.6 g/dL (1.3-4.6) 12/07/22 10:42 Discharge Plan Discharge Condition: Stable Prescriptions: No Action Spiriva Respimat 1.25 mcg/actuation mist 2 puff inhalation DAILY Qty: 4 6RF (DME) Thumb Spika Splint See Rx Instructions .Route .MEDSUPPLY Qty: 2 0RF Rx Instructions: As directed hydrocodone-acetaminophen 5-325 mg tablet 1 tab PO Q6H PRN (Reason: pain) 7 Days Qty: 30 0RF tramadol 50 mg tablet 50 mg PO TID PRN (Reason: pain) Qty: 21 0RF clopidogrel 75 mg tablet 75 mg PO DAILY Rx Instructions: external med history has rx last filled on 09/04/2019 30d/s-pt states he only takes when he thinks he needs Aspir-81 81 mg Tablet,Delayed Release (Dr/Ec) 81 mg PO DAILY Rx Instructions: pt states he takes this everyday albuterol sulfate 90 mcg/actuation HFA aerosol inhaler 2 inh inhalation Q4H PRN (Reason: shortness of breath or wheezing) Qty: 8.5 0RF amoxicillin-pot clavulanate 875-125 mg tablet 1 tab PO BID Qty: 20 0RF benzonatate 100 mg capsule 100 mg PO Q6H PRN (Reason: cough) Qty: 30 0RF Referrals: Franklin,BRIGETTE Bourne [Primary Care Provider] - Coding Level of Care Code ED Visual Merchandising Specialist for Uzair Cooper
[2022-12-07 10:54] LABS: Basophils % 0.4 %; Eosinophils # 0.2 10^3/uL (0.0-0.8); Eosinophils % 1.9 %; Hematocrit 36.1 % (42.0-52.0); Hemoglobin 11.8 g/dL (11.7-16.6); Lymphocytes # 2.4 10^3/uL (0.8-4.8); Lymphocytes % 22.2 %; Mean Corpuscular HGB Conc 32.7 g/dL (30.0-36.0); Mean Corpuscular Hemoglobin 29.2 pg (28.0-34.0); Mean Corpuscular Volume 89.4 fl (80-94); Mean Platelet Volume 8.7 fL (7.4-10.4); Neutrophils # 7.12 10^3/uL (1.8-7.7); Neutrophils % 65.9 %; Nucleated Red Blood Cells % 0 %; Platelet Count 313 10^3/cmm (130-400); Red Blood Count 4.04 10^6/uL (4.1-5.3); Red Cell Distribution Width 12.6 % (12.1-15.1); White Blood Count 10.8 10^3/uL (4.0-10.0)
[2022-12-07 11:10] LABS: INR 1.04 (0.8-1.2)
[2022-12-07 11:22] LABS: Alanine Aminotransferase 14 U/L (0-41); Albumin Level 3.5 g/dL (3.5-5.2); Alkaline Phosphatase 52 U/L (40-130); Anion Gap 14.5 (5-19); Aspartate Amino Transferase 13 U/L (0-40); Blood Urea Nitrogen 9 mg/dL (6-20); Calcium 9.2 mg/dL (8.5-10.5); Carbon Dioxide 27 mmol/L (22-29); Chloride 100 mmol/L (98-107); Creatinine Clr Calc Pharmacy 108.8082; Globulin 3.6 g/dL (1.3-4.6); Glomerular Filtration Rate 120.9 mL/min (90-130); Glucose 92 mg/dL (65-115); Osmolality Calculated 282 mOsm/kg (285-295); Potassium 4.5 mmol/L (3.5-5.1); Sodium 137 mmol/L (136-145); Total Bilirubin 0.4 mg/dL (0.15-1.2); Total Protein 7.1 g/dL (6.6-8.7)
[2022-12-07] MEDS: sodium chloride 0.9% 1,000 ML 999 ML IV (12:01)
[2022-12-07 12:04] LABS: Creatine Phosphokinase 43 U/L (39-308); Lactic Sepsis W/Reflex 0.8 mmol/L (0.5-2.2)
[2022-12-07 12:48] VITALS: BP 89/72; PULSE 81; RESP 19; O2SAT 98
[2022-12-07] MEDS: heparin drip 25,000 UNIT/500 ML PREMIX 21 UNIT IV (12:50)
[2022-12-07] MEDS: heparin 5,000 unit/mL INJ 1 mL IV (12:51)
--- NOTE | 2022-12-07 12:56 | PC.NURSE ---
HEPARIN STARTED AT 1250
[2022-12-07 14:37] VITALS: BP 86/63; PULSE 88; RESP 20; O2SAT 98
[2022-12-07 15:29] VITALS: BP 89/68; PULSE 85; RESP 18; O2SAT 99
== END 2022-12-07 15:31 | disposition short-term general hospital (02) ==
PROVIDERS: Nurse Practitioner Family; Emergency Provider Emergency Medicine; PCP Nurse Practitioner Family
DX: I70.201 Unspecified atherosclerosis of native arteries of extremities, right leg (principal); F17.210 Nicotine dependence, cigarettes, uncomplicated; Z79.82 Long term (current) use of aspirin; Z79.02 Long term (current) use of antithrombotics/antiplatelets
CPT/HCPCS: 80053; 82550; 83605; 85025; 85610; 85730; 93926; 96374; 99284; J1644; J7030

== ENCOUNTER 2023-01-12 14:37 | Emergency (ER) | payer BC, MEDICAID, SELFPAY ==
[2023-01-12 14:49] VITALS: BP 79/59; PULSE 137; RESP 14; TEMP 36.7; O2SAT 100; BMI 21.7
--- NOTE | 2023-01-12 14:56 | W.ED.EXTPRO ---
HPI - Extremity Problem General: Chief complaint: Extremity Injury, Lower Stated complaint: dizzy, has stage 4 cancer, sob, right leg swollen Time Seen by Provider: 01/12/23 14:55 History of Present Illness: Mr. Gagnon is a 47-year-old gentleman with complex past medical history including metastatic cancer presented to the emergency department for leg pain and swelling. Notes onset of symptoms earlier today with pain, numbness, swelling, discoloration. Moderate to severe in intensity. Denies trauma. Denies other infectious symptoms. Found to be somewhat hypotensive and tachycardic though is somewhat unsure why. He has had recent multiple hospitalizations. No other specific changes in health, exacerbating, or alleviating factors identified. Onset (ago): hour(s) Severity scale (1-10): 9 Exacerbating factors: walking and exertion Associated symptoms: Reports other Review of Systems General: Reports: 10 or more systems reviewed and unremarkable except in HPI and below PFSH ED PFSH: Medical History No pertinent family history Surgical History No pertinent past surgical history Family History Family/Other Cancer Father CAD (coronary artery disease) Social History Smoking and tobacco status: current every day smoker Physical Exam Const: COMMON NORMALS: alert GENERAL APPEARANCE: cooperative and well developed HENMT: COMMON NORMALS: normocephalic and atraumatic HEAD & SCALP: normocephalic and atraumatic Eye: COMMON NORMALS: conjunctivae normal CONJUNCTIVA: Yes conjunctivae normal SCLERA: sclerae normal Neck/C-Spine: COMMON NORMALS: supple GENERAL: Yes trachea midline Resp: COMMON NORMALS: clear to auscultation bilaterally EFFORT & INSPECTION: Yes able to speak in complete sentences AUSCULTATION: clear to auscultation bilaterally Cardio: COMMON NORMALS: regular rhythm RATE: tachycardic RHYTHM: regular rhythm GI: COMMON NORMALS: Soft to palpation PALPATION: Yes Soft to palpation and No Tenderness to palpation present (GI) Extremity: NARRATIVE EXTREMITY EXAM: Right lower extremity edematous with discoloration, tenderness to palpation and subjective sensory changes. No open wounds. GENERAL: Yes normal exam except as noted and No edema Neuro: COMMON NORMALS: moves all extremities SENSORIUM/ORIENTATION: Yes alert and No Orientation impaired Psych: COMMON NORMALS: mental status grossly normal and Normal thought process present THOUGHT PROCESS: Normal thought process present Course Vital Signs: Vital signs: Vital Signs Temperature 98.1 F 01/12/23 14:49 Pulse Rate 124 H 01/12/23 20:55 Respiratory Rate 20 H 01/12/23 20:55 Blood Pressure 97/68 01/12/23 20:55 Pulse Oximetry 100 01/12/23 20:55 Oxygen Delivery Me thod Room Air 01/12/23 18:18 MDM - Extremity (Nontraumatic) Medical Decision Making 47-year-old gentleman with complex history presenting with increased swelling of the lower extremity throughout the day and subsequently pain and paresthesias. Ill in appearance with tachycardia and hypotension. Denies chest pain or shortness of breath worse than baseline. EKG demonstrates sinus tachycardia with normal axis and intervals, no STEMI. Labs with leukocytosis and normocytic anemia. Metabolic panel with evidence of metabolic stress including hyponatremia and dehydration. Negative range 2-hour delta troponin. Lactic acid is normal. Chest x-ray with mildly improved findings compared to prior. No evidence consolidation or pneumothorax. CT imaging demonstrates both arterial and extensive venous acute disease including some suspected acute embolic disease. Ultrasound confirms extensive DVT. During ED course patient treated with fluids, analgesia, initiated on heparin drip. He is clinically improved though given underlying medical condition and current findings still quite ill. Patient requires vascular surgery and possible IR. 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 Discussed the seriousness of his condition and we will proceed with transfer. The results of ED evaluation were discussed with the patient including plan for transfer due to requirement for level of care not available if discharged to prevent significant worsening/deterioration. Patient agreeable with plan. Accepted as ER to ER transfer at [facility]. Medical Records I reviewed the patient's medical records. Lab Data I reviewed the patient's lab results. 01/12/23 15:12 01/12/23 15:12 Radiology Impressions Aorta w/Runoff CTA 01/12/23 15:03 IMPRESSION: 1. 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 Reconstituted flow in the external iliac artery. 2. Moderate stenoses in the proximal and distal right superficial femoral artery. 3. Severe disease in the right posterior tibial artery with distal occlusion. 4. Extensive deep vein thrombosis in the right lower extremity with possible extension into the right external iliac vein. 5. Metastatic gastrohepatic and retroperitoneal lymph nodes. 6. Multiple metastatic soft tissue lesions inferior to the spleen and in the perinephric spaces. 7. Small metastatic lesion in the left adrenal gland. 8. Bony metastatic disease. ADDENDUM: 01/12/231756 THIS REPORT CONTAINS FINDINGS THAT MAY BE CRITICAL TO PATIENT CARE. The findings were verbally communicated via telephone conference with Siva Andres at 5:55 PM CDT on 01/12/2023. The findings were acknowledged and understood. Venous Duplex 01/12/23 16:23 IMPRESSION: 1. Extensive occlusive deep vein thrombosis throughout the right lower extremity. 2. Near occlusive superficial thrombus in the greater saphenous vein. ADDENDUM: 01/12/231756 THIS REPORT CONTAINS FINDINGS THAT MAY BE CRITICAL TO PATIENT CARE. The findings were verbally communicated via telephone conference with Siva Andres at 5:55 PM CDT on 01/12/2023. The findings were acknowledged and understood. Laboratory Results WBC 13.3 10^3/uL (4.0-10.0) H 01/12/23 15:12 RBC 2.98 10^6/uL (4.1-5.3) L 01/12/23 15:12 Hgb 8.0 g/dL (11.7-16.6) L 01/12/23 15:12 Hct 24.0 % (42.0-52.0) L 01/12/23 15:12 MCV 80.5 fl (80-94) 01/12/23 15:12 MCH 26.8 pg (28.0-34.0) L 01/12/23 15:12 MCHC 33.3 g/dL (30.0-36.0) 01/12/23 15:12 RDW 14.6 % (12.1-15.1) 01/12/23 15:12 Plt Count 238 10^3/cmm (130-400) 01/12/23 15:12 MPV 10.4 fL (7.4-10.4) 01/12/23 15:12 Neut % (Auto) 86.5 % 01/12/23 15:12 Lymph % (Auto) 6.6 % 01/12/23 15:12 [place] % (Auto) 5.5 % 01/12/23 15:12 Eos % (Auto) 0.4 % 01/12/23 15:12 Baso % (Auto) 0.2 % 01/12/23 15:12 Neut # (Auto) 11.54 10^3/uL (1.8-7.7) H 01/12/23 15:12 Lymph # (Auto) 0.9 10^3/uL (0.8-4.8) 01/12/23 15:12 [place] # (Auto) 0.7 10^3/uL (0.2-0.9) 01/12/23 15:12 Eos # (Auto) 0.1 10^3/uL (0.0-0.8) 01/12/23 15:12 Baso # (Auto) 0.0 10^3/uL (0.0-0.1) 01/12/23 15:12 Nucleated RBC % (auto) 0 % 01/12/23 15:12 Nucleated RBCs # 0.0 /100WBC 01/12/23 15:12 PT 16.80 SECONDS (12.1-14.9) H 01/12/23 15:12 INR 1.32 (0.8-1.2) H 01/12/23 15:12 APTT 35.0 SECONDS (23.9-36.7) 01/12/23 15:12 Sodium 130 mmol/L (136-145) L 01/12/23 15:12 Potassium 4.5 mmol/L (3.5-5.1) 01/12/23 15:12 Chloride 91 mmol/L (98-107) L 01/12/23 15:12 Carbon Dioxide 24 mmol/L (22-29) 01/12/23 15:12 Anion Gap 19.5 (5-19) H 01/12/23 15:12 BUN 11 mg/dL (6-20) 01/12/23 15:12 Creatinine 0.5 mg/dL (0.7-1.2) L 01/12/23 15:12 GFR Calculation 178.2 mL/min (90-130) H 01/12/23 15:12 Glucose 121 mg/dL (65-115) H 01/12/23 15:12 Calculated Osmolality 271 mOsm/kg (285-295) L 01/12/23 15:12 Lactic Acid 1.9 mmol/L (0.5-2.2) 01/12/23 15:12 Calcium 8.3 mg/dL (8.5-10.5) L 01/12/23 15:12 Total Bilirubin 0.5 mg/dL (0.15-1.2) 01/12/23 15:12 AST 22 U/L (0-40) 01/12/23 15:12 ALT 16 U/L (0-41) 01/12/23 15:12 Alkaline Phosphatase 105 U/L (40-130) 01/12/23 15:12 Troponin T Baseline 20 ng/L (0-15) H 01/12/23 15:12 Troponin T 120 Minute 19.07 ng/L (0-15) H 01/12/23 16:48 Delta Troponin T -0.93 ABS# (0-10) L 01/12/23 16:48 Total Protein 6.3 g/dL (6.6-8.7) L 01/12/23 15:12 Albumin 2.5 g/dL (3.5-5.2) L 01/12/23 15:12 Globulin 3.8 g/dL (1.3-4.6) 01/12/23 15:12 Critical Care Time Critical Care Time: Critical Care Time: Yes Total Critical Care Time: 80 Attestation: Due to a high probability of clinically significant, possibly life threatening deterioration, the patient required my highest level of attention and preparedness to intervene emergently and I personally spent this critical care time directly and personally managing the patient. This critical care time included obtaining a history; examining the patient; pulse oximetry; ordering and review of laboratory and imaging studies; arranging urgent treatment with development of a management plan; evaluation of patient's response to treatment; frequent reassessment; and, discussions with other providers as applicable. It was exclusive of separately billable procedures. 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, Status post insertion of iliac artery stent, Occlusion of stent of peripheral artery, Peripheral arterial disease Condition: Serious Prescriptions: No Action Spiriva Respimat 1.25 mcg/actuation mist 2 puff inhalation DAILY Qty: 4 6RF (DME) Thumb Spika Splint See Rx Instructions .Route .MEDSUPPLY Qty: 2 0RF Rx Instructions: As directed clopidogrel 75 mg tablet 75 mg PO DAILY albuterol sulfate 90 mcg/actuation HFA aerosol inhaler 2 inh inhalation Q4H PRN (Reason: shortness of breath or wheezing) Qty: 8.5 0RF amoxicillin-pot clavulanate 875-125 mg tablet 1 tab PO BID Qty: 20 0RF benzonatate 100 mg capsule 100 mg PO Q6H PRN (Reason: cough) Qty: 30 0RF morphine 30 mg tablet extended release 30 mg PO Q12H Aspir-81 81 mg Tablet,Delayed Release (Dr/Ec) 81 mg PO DAILY hydrocodone-acetaminophen 7.5-325 mg tablet 1 tab PO Q6H PRN (Reason: Pain) Colace 100 mg Capsule 100 mg PO BID cyclobenzaprine 10 mg Tablet 10 mg PO TID PRN (Reason: Spasms) gabapentin 300 mg Capsule 300 mg PO BID azelastine 137 mcg (0.1 %) Aerosol,[place] 2 spray INTRANASAL BID Rx Instructions: administer into each nostril Referrals: Tayla Franklin FNP [Primary Care Provider] - Coding Level of Care Code ED Nodulizer for Uzair Cooper
--- NOTE | 2023-01-12 15:03 | CTR_ITS ---
PROCEDURE INFORMATION: Exam: CTA Abdominal Aorta and Bilateral Lower Extremities (Run-off) With Contrast Exam date and time: 01/12/2023 3:59 PM Age: 47 years old Clinical indication: Other: Rle pain and paresthesias, swelling, prior stents TECHNIQUE: Imaging protocol: Computed tomographic angiography of the of the abdominal aorta, pelvis and bilateral lower extremities with contrast. 3D rendering (Not supervised by radiologist): MIP and/or 3D reconstructed images were created by the technologist. Radiation optimization: All CT scans at this facility use at least one of these dose optimization techniques: automated exposure control; mA and/or kV adjustment per patient size (includes targeted exams where dose is matched to clinical indication); or iterative reconstruction. Contrast material: OMNI 350; Contrast volume: 100 ml; Contrast route: INTRAVENOUS (IV); REPORTING DATA: Count of CT and Cardiac NM exams in prior 12 months: This patient has received 4 known CTs and 0 known cardiac nuclear medicine studies in the 12 months prior to the current study. COMPARISON: CT abdomen pelvis w con* [id number] 08/25/2022 2:31 AM RADIATION DOSE METRICS: Total DLP (mGy-cm): 632.33 FINDINGS: Aorta: Mild calcified plaque in the abdominal aorta. No aneurysm or dissection. Celiac trunk and mesenteric arteries: Atherosclerotic plaque with mild stenosis in the proximal superior mesenteric artery. No stenosis in the celiac artery. Renal arteries: No occlusion or significant stenosis. 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 Reconstituted flow in the right external iliac artery, via the internal iliac artery. Mild stenosis in the distal external iliac artery. Right femoral/popliteal arteries: Moderate stenoses in the proximal and distal right superficial femoral artery. The artery is diffusely small in size. The right popliteal artery is small in size with no significant stenosis. Right infrapopliteal arteries: Severe disease in the right posterior tibial artery with distal occlusion. Severe disease in the peroneal artery with occlusion in the mid calf region. The anterior tibial artery is patent without stenosis, with runoff to the foot. Left iliac arteries: Calcified plaque in the left common iliac artery with a patent stent. No significant stenosis. Mild stenosis in the distal external iliac artery. Left femoral/popliteal arteries: Mild plaque in the left superficial femoral artery without significant stenosis. The left popliteal artery is patent without stenosis. Left infrapopliteal arteries: No significant disease in the left infrapopliteal arteries with visible runoff to the foot in the anterior tibial and posterior tibial arteries. Veins: Enlargement and hypodensity in the deep veins of the right lower extremity and right external iliac vein. Liver: Inhomogeneity of the liver. No discrete nodule visualized. Gallbladder and bile ducts: Unremarkable. No calcified stones. No ductal dilation. Pancreas: Unremarkable. No mass. No ductal dilation. Spleen: The spleen is unremarkable. Adrenal glands: 1.1 cm irregular nodule in the left adrenal gland. The right adrenal is normal. Kidneys and ureters: 0.7 cm and 0.8 cm left perinephric nodules. 1.0 cm and 0.5 cm right perinephric nodules. The kidneys are unremarkable. No hydronephrosis. Stomach and bowel: Unremarkable. No obstruction. No mucosal thickening. Appendix: No evidence of appendicitis. Urinary bladder: Unremarkable. No mass. Reproductive: Enlarged prostate. Intraperitoneal space: Mild pelvic ascites. No free peritoneal air. Lymph nodes: Multiple enlarged centrally necrotic gastrohepatic lymph nodes, the largest measuring 2.3 cm. Enlarged superior retroperitoneal lymph nodes, the largest measuring 1.5 cm. Bones/joints: T11 Schmorl's node. Small lytic lesion in the left 8th rib. Lytic lesion in the right L4 pedicle and facet. Small lytic lesion in the right ischial tuberosity. 2 lytic lesions in the right iliac bone. Tiny lytic lesion in the left iliac bone. Soft tissues: Subcutaneous soft tissue edema throughout the right lower extremity. Other findings: 2.3 cm irregular targetoid nodule posterior to the spleen. CT/CT angio abd aorta runof [id number] IMPRESSION: 1. 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 Reconstituted flow in the external iliac artery. 2. Moderate stenoses in the proximal and distal right superficial femoral artery. 3. Severe disease in the right posterior tibial artery with distal occlusion. 4. Extensive deep vein thrombosis in the right lower extremity with possible extension into the right external iliac vein. 5. Metastatic gastrohepatic and retroperitoneal lymph nodes. 6. Multiple metastatic soft tissue lesions inferior to the spleen and in the perinephric spaces. 7. Small metastatic lesion in the left adrenal gland. 8. Bony metastatic disease.
--- NOTE | 2023-01-12 15:03 | XR_ITS ---
WS: [id number] PORTABLE CHEST HISTORY: sob COMPARISON: 11/27/2022, chest CT 11/27/2022 As compared to the prior examination there is slight improvement in the interstitial thickening. Very slight persistent increase opacification in the right upper lobe. On the prior CT there was a cavita ry lesion and bronchial thickening and a right hilar mass. There is less mediastinal widening on toda y's examination. No pneumothorax. Cardiac size: Normal. Mediastinum/Aorta: Short stent right upper thorax. Numerous surgical sutures in the left neck. No osseous abnormality seen. IMPRESSION: 1. Mildly prominent interstitial thickening in the right upper lung field. Mildly improved since 11/27. 2. No dense consolidations.
--- NOTE | 2023-01-12 15:12 | ECG_ITS ---
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 Measurements Intervals [place] Rate: 126 P: 79 W[place]: 127 QRS: 83 QRSD: 85 T: 69 QT: 306 QTc: 443 Interpretive Statements SINUS TACHYCARDIA Compared to ECG 11/27/2022 17:11:19 Sinus rhythm no longer present Electronically Signed On 01-12-2023 18:46:19 CDT by Shanna Will M.D. [email or web address]
[2023-01-12 15:30] LABS: Basophils % 0.2 %; Eosinophils # 0.1 10^3/uL (0.0-0.8); Eosinophils % 0.4 %; Lymphocytes # 0.9 10^3/uL (0.8-4.8); Lymphocytes % 6.6 %; Mean Corpuscular HGB Conc 33.3 g/dL (30.0-36.0); Mean Corpuscular Hemoglobin 26.8 pg (28.0-34.0); Mean Corpuscular Volume 80.5 fl (80-94); Mean Platelet Volume 10.4 fL (7.4-10.4); Monocytes # 0.7 10^3/uL (0.2-0.9); Monocytes % 5.5 %; Neutrophils # 11.54 10^3/uL (1.8-7.7); Neutrophils % 86.5 %; Nucleated Red Blood Cells % 0 %; Platelet Count 238 10^3/cmm (130-400); Red Blood Count 2.98 10^6/uL (4.1-5.3); Red Cell Distribution Width 14.6 % (12.1-15.1); White Blood Count 13.3 10^3/uL (4.0-10.0)
[2023-01-12 15:39] LABS: INR 1.32 (0.8-1.2)
[2023-01-12 15:44] LABS: Lactic Sepsis W/Reflex 1.9 mmol/L (0.5-2.2)
[2023-01-12 15:50] LABS: Troponin(5th) Baseline 20 ng/L (0-15)
[2023-01-12 15:52] LABS: Alanine Aminotransferase 16 U/L (0-41); Albumin Level 2.5 g/dL (3.5-5.2); Alkaline Phosphatase 105 U/L (40-130); Blood Urea Nitrogen 11 mg/dL (6-20); Calcium 8.3 mg/dL (8.5-10.5); Carbon Dioxide 24 mmol/L (22-29); Chloride 91 mmol/L (98-107); Globulin 3.8 g/dL (1.3-4.6); Glomerular Filtration Rate 178.2 mL/min (90-130); Glucose 121 mg/dL (65-115); Osmolality Calculated 271 mOsm/kg (285-295); Sodium 130 mmol/L (136-145); Total Bilirubin 0.5 mg/dL (0.15-1.2); Total Protein 6.3 g/dL (6.6-8.7)
[2023-01-12 15:54] LABS: Anion Gap 19.5 (5-19); Aspartate Amino Transferase 22 U/L (0-40); Potassium 4.5 mmol/L (3.5-5.1)
--- NOTE | 2023-01-12 15:57 | PC.PHAR ---
PT SEEMED SOMEWHAT CONFUSED ABOUT MEDICATIONS AND WHEN LAST TAKEN. I READ THEM OFF TO PT AND ACTUALLY WENT THROUGH THE MEDS HE BROUGHT IN WITH HIM. ALL ARE VERIFIED.
[2023-01-12] MEDS: fentaNYL 50 mcg/mL INJ 2mL IVP ×2 (16:14→18:08)
[2023-01-12 16:16] VITALS: BP 91/66
[2023-01-12] MEDS: sodium chloride 0.9% 1,000 ML 999 ML IV ×2 (16:16→18:08)
--- NOTE | 2023-01-12 16:23 | USR_ITS ---
PROCEDURE INFORMATION: Exam: US Duplex Right Lower Extremity Veins, Limited Exam date and time: 01/12/2023 4:45 PM Age: 47 years old Clinical indication: Pain; Leg, lower; Right; Additional info: Atraumatic swelling, pain TECHNIQUE: Imaging protocol: Real-time duplex ultrasound of the right extremity with 2-D koehler scale, color Doppler flow and spectral waveform analysis including responses to compression and other maneuvers (when performed) with image documentation. Limited exam was focused on the right lower extremity veins. COMPARISON: [place] [id number] 12/07/2022 11:05 AM FINDINGS: Right deep veins: Extensive occlusive deep vein thrombosis involving the common femoral, profunda femoral, femoral, popliteal, peroneal, and posterior tibial veins. Superficial veins: Near occlusive thrombus in the greater saphenous vein with some augmentation visible proximally and below the knee. Soft tissues: Unremarkable. US/[place] [id number] IMPRESSION: 1. Extensive occlusive deep vein thrombosis throughout the right lower extremity. 2. Near occlusive superficial thrombus in the greater saphenous vein.
--- NOTE | 2023-01-12 17:03 | ECG_ITS ---
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 Measurements Intervals [place] Rate: 119 P: 80 [place]: 133 QRS: 82 QRSD: 87 T: 62 QT: 319 QTc: 450 Interpretive Statements SINUS TACHYCARDIA ABNORMAL RHYTHM ECG Compared to ECG 01/12/2023 15:12:19 No significant changes Electronically Signed On 01-12-2023 18:57:43 CDT by Shanna Will M.D. [email or web address]
[2023-01-12 17:56] LABS: Troponin 5 2HR 19.07 ng/L (0-15)
[2023-01-12 17:58] LABS: Troponin 5 2HR Delta -0.93 ABS# (0-10)
[2023-01-12 18:18] VITALS: BP 87/65; PULSE 118; RESP 16; O2SAT 100
[2023-01-12] MEDS: heparin 5,000 unit/mL INJ 1 mL IV (18:32)
[2023-01-12] MEDS: heparin drip 25,000 UNIT/500 ML PREMIX 20 UNIT IV (18:33)
[2023-01-12 18:52] VITALS: BP 86/63
[2023-01-12 20:55] VITALS: BP 97/68; PULSE 124; RESP 20; O2SAT 100
== END 2023-01-12 19:50 ==
PROVIDERS: Emergency Provider Emergency Medicine; PCP Nurse Practitioner Family
DX: I99.8 Other disorder of circulatory system (principal); I80.291 Phlebitis and thrombophlebitis of other deep vessels of right lower extremity; I77.89 Other specified disorders of arteries and arterioles; I73.9 Peripheral vascular disease, unspecified; F17.210 Nicotine dependence, cigarettes, uncomplicated; C80.1 Malignant (primary) neoplasm, unspecified; Z79.82 Long term (current) use of aspirin; Z79.02 Long term (current) use of antithrombotics/antiplatelets; D72.829 Elevated white blood cell count, unspecified; D64.9 Anemia, unspecified
CPT/HCPCS: 71045; 75635; 80053; 83605; 84484; 85025; 85610; 85730; 87040; 93005; 93971; 96361; 96365; 96375; 96376; 99285; J1644; J3010; J7030; Q9967